=== PATIENT | female | born 1970 | race Caucasian/White ===

== ENCOUNTER 2019-01-08 12:54 | Inpatient (IN) | payer OTHER ==
[~2019-01-08] VITALS: Ht 154.9 cm; Wt 93.2 kg
[~2019-01-08 12:54] MED LIST: AMPDEX30CR PO; Dazidox10 MG PO; METCAR500 PO; TRAZ50 PO; VENL25 PO
[2019-01-08 13:30] LABS: BASOPHILS ABSOLUTE AUTO 0.08 K/mm3 (0.00-0.23); BASOPHILS PERCENT AUTO 1 % (0-2); EOSINOPHILS ABSOLUTE AUTO 0.32 K/mm3 (0.00-0.68); EOSINOPHILS PERCENT AUTO 4 % (0-6); Hematocrit 47.7 % (33.0-51.0); Hemoglobin 15.5 g/dL (11.5-16.0); IMMATURE GRAN ABSOLUTE AUTO 0.03 K/mm3 (0.00-0.10); IMMATURE GRAN PERCENT AUTO 0 % (0-1); LYMPHOCYTES ABSOLUTE AUTO 2.29 K/mm3 (0.84-5.20); LYMPHOCYTES PERCENT AUTO 27 % (21-46); MONOCYTES ABSOLUTE AUTO 0.61 K/mm3 (0.16-1.47); MONOCYTES PERCENT AUTO 7 % (4-13); Mean Corpuscular HGB 32.1 pg (26.0-34.0); Mean Corpuscular HGB Conc 32.5 g/dL (31.5-36.5); Mean Corpuscular Volume 99 fL (80-100); Mean Platelet Volume 9.7 fL (9.1-12.4); NEUTROPHILS ABSOLUTE AUTO 5.02 K/mm3 (1.96-9.15); NEUTROPHILS PERCENT AUTO 60 % (41-73); Platelet Count 347 K/mm3 (150-400); RDW Coefficient Variation 17.7 % (11.7-14.2); RDW Standard Deviation 65.8 fL (35.1-46.3); Red Blood Cell Count 4.83 M/mm3 (3.80-5.20); White Blood Cell Count 8.35 K/mm3 (4.00-11.30)
[2019-01-08 13:49] LABS: Alanine Aminotransfer (ALT/SGP 41 U/L (12-78); Albumin, Blood 3.5 g/dL (3.4-5.0); Albumin/Globulin Ratio 1.3 (0.8-1.8); Alk Phos 136 U/L (50-136); Anion Gap 7 mmol/L (6-16); Aspartate Aminotrans (AST/SGOT 27 U/L (12-37); Bilirubin, Total 0.3 mg/dL (0.1-1.0); Blood Urea Nitrogen 19 mg/dL (8-24); Bun/Creatinine Ratio 20.7 (12.0-20.0); CO2, Blood 24 mmol/L (21-32); Calcium, Blood 8.8 mg/dL (8.5-10.1); Chloride, Blood 106 mmol/L (98-108); Creatinine, Blood 0.92 mg/dL (0.40-1.00); Globulin, Blood 2.7 g/dL (2.2-4.0); Glomerular Filtration Rate >60 (60-); Glucose, Blood 83 mg/dL (70-99); Potassium, Blood 4.8 mmol/L (3.5-5.5); Sodium, Blood 137 mmol/L (136-145); Total Protein, Blood 6.2 g/dL (6.4-8.2)
[2019-01-08] MEDS ORDERED: Prinivil10 MG PO (14:21)
[2019-01-08] MEDS ORDERED: GABA300 PO (14:21)
[2019-01-08] MEDS ORDERED: Dyazide 37.5-21 EACH PO (14:22)
[2019-01-08] MEDS ORDERED: PANT40 PO (14:22)
[2019-01-08] MEDS ORDERED: CLON.1 PO (14:23)
[2019-01-08] MEDS ORDERED: VENL75ER PO (14:23)
[2019-01-08 14:25] LABS: PCO2 Arterial 36.8 mmHg (35-45); pH Blood Arterial 7.41 (7.35-7.45)
[2019-01-08 15:46] LABS: Ethanol (Alcohol), Blood, Med <3 mg/dL
[2019-01-08] MEDS ORDERED: ALBU90OI61 INH (17:55)
[2019-01-08] MEDS ORDERED: QVAR REDIHALE10.6 GM INH (17:55)
[2019-01-08] MEDS ORDERED: QVAR REDIHALE10.6 GM (22:14)
[2019-01-09 00:03] LABS: U Amphetamine Screen Not Detected; U Barbituate Screen Not Detected; U Benzodiazapine Screen DETECTED; U Cocaine Screen Not Detected; U Methamphetamine Screen DETECTED
[2019-01-09 00:04] LABS: U Buprenorphine Screen Not Detected; U Cannabinoids Screen Not Detected; U Methadone Screen Not Detected; U Opiates Screen Not Detected; U Oxycodone Screen Not Detected; U Phencyclidine Screen Not Detected; U Propoxyphene Screen Not Detected
[2019-01-09 02:29] LABS: Hemoglobin 15.4 g/dL (11.5-16.0); Mean Corpuscular HGB 31.8 pg (26.0-34.0); Mean Corpuscular HGB Conc 32.1 g/dL (31.5-36.5); Mean Corpuscular Volume 99 fL (80-100); Mean Platelet Volume 9.5 fL (9.1-12.4); Platelet Count 312 K/mm3 (150-400); RDW Coefficient Variation 17.8 % (11.7-14.2); RDW Standard Deviation 65.6 fL (35.1-46.3); Red Blood Cell Count 4.85 M/mm3 (3.80-5.20); White Blood Cell Count 8.36 K/mm3 (4.00-11.30)
[2019-01-09 02:47] LABS: Alanine Aminotransfer (ALT/SGP 33 U/L (12-78); Alk Phos 127 U/L (50-136); Anion Gap 6 mmol/L (6-16); Aspartate Aminotrans (AST/SGOT 23 U/L (12-37); Bilirubin, Total 0.3 mg/dL (0.1-1.0); Blood Urea Nitrogen 19 mg/dL (8-24); CO2, Blood 25 mmol/L (21-32); Calcium, Blood 8.6 mg/dL (8.5-10.1); Chloride, Blood 107 mmol/L (98-108); Globulin, Blood 2.9 g/dL (2.2-4.0); Glomerular Filtration Rate >60 (60-); Glucose, Blood 96 mg/dL (70-99); Potassium, Blood 4.6 mmol/L (3.5-5.5); Sodium, Blood 138 mmol/L (136-145); Total Protein, Blood 5.9 g/dL (6.4-8.2)
--- NOTE | 2019-01-09 07:31 | NUR ---
ADMIT NOTE/SHIFT SUMMARY: PATIENT ADMITTED FROM THE ER EARLIER LAST NIGHT. PATIENT TRANSFERED FROM THE [facility] TO THE BED VIA SLIDER SHEET. PATIENT REPORTS THAT SHE HAS BEEN FEELING DIZZY FOR MONTHS NOW AND HAS BEEN PASSING OUT OCCATIONALLY WELL. PATIENT REPORTS FREQUENT FALLS DUE TO THE DIZZINESS. PATIENT WAS UP TO THE [facility] AND STATED THAT SHE DID FEEL WEAK. PATIENT UNSTEADY AND SHAKEY ON HER FEET. PATIENT DROWSY UPON ADMIT BUT DID AWAKEN EASILY WITH VERBAL STIMULI. PATIENT NOW MUCH MORE ALERT AND STATES THAT SHE NO LONGER FEELS DROWSY. SHE STATED, "I DON'T REMEMBER MUCH OF LAST NIGHT AT ALL." PATIENT CURRENTLY SITTING UP IN BED AND WATCHING TV. VITAL SIGNS CHARTED. REPORT GIVEN TO ONCOMING RN.
--- NOTE | 2019-01-09 11:13 | NUR ---
re assessment no changes from this am shift assessment. patient tells me she has been sleeping since ativan given and has no tremors or anxiety
--- NOTE | 2019-01-09 15:18 | NUR ---
1400 patient tearful after visit from dr narvaez. 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 discussed with patient NPO status for ultrasound later today
--- NOTE | 2019-01-09 15:20 | NUR ---
VITAL SIGNS PATIENT DECLINES HAVING VITAL SIGNS DONE AT THIS TIME. ASKS WHY DID YOU F...N WAKE ME UP. PATIENT DENIES NEED FOR ATIVAN AT THIS TIME. CONTACTED [facility] PER PATIENT REQUEST TO UPDATE THEM ON PATIENT STATUS
--- NOTE | 2019-01-09 17:54 | NUR ---
PATIENT MED X1 WITH ATIVAN FOR ANXIETY AND HAS SLEPT MUCH OF SHIFT. PATIENT VERY TEARFUL AFTER SEEN BY DR PANCHAL WHO DISCUSSED HER HEART FAILURE DIAGNOSIS. PATIENT TELLS ME SHE IS HOMELESS AND HAS LITTLE CONTACT WITH HER FAMILY. PATIENT DID CONTACT HER MOTHER, WHO LIVES IN [place], AFTER SHE WAS SEEN BY DR PANCHAL. PATIENT NPO FOR ABD ULTRASOUND. PATIENT OUT IN HALLWAY AND STATES SHE DOES NOT WANT THE TEST AND SHE WANTS DINNER NOW. DISCUSSED ULTRASOUND WITH PATIENT WHO AT THIS TIME AGREES TO CONTINUE NPO. PATIENT AWARE OF PLAN FOR TRANSFER TO [facility] FOR FURTHER TREATMENT
--- NOTE | 2019-01-09 19:30 | NUR ---
PATIENT REFUSES TO WAIT FOR ULTRASOUND TONIGHT. YELLING IN THE HALLWAY. STATING SHE WANTS TO EAT AND SHE DOES NOT CARE ABOUT THE TEST. SHE IS REFUSING TO WAIT ANY LONGER. ULTRASOUND NOT ABLE TO COME AT THIS TIME DO TO EMERGENT CASE IN ER. PATIENT GIVEN DINNER.
--- NOTE | 2019-01-10 00:45 | NUR ---
PATIENT EATING A SALAD AND ICE CREAM. SITTING COMFORTABLY IN ROOM. NO SIGNS OF ANXIETY OR TREMORS AT THIS TIME.
--- NOTE | 2019-01-10 05:55 | NUR ---
Patient has bouts of temper where she verbally lashes out at staff. Patient stated last night she didn't care if she was NPO in the morning as long as she got dinner. Patient ate again just after midnight and was asking for more at 4am. Explained that she needed to wait until around 8 or after for food and drink to be able to complete ultrasound. Patient reluctantly agreed.
--- NOTE | 2019-01-10 17:49 | NUR ---
SHIFT SUMMARY PT ALERT AND ORIENTED. VS STABLE. O2 SATS REMAIN ABOVE 90% ON RA. PT INDEPENDENT IN ROOM. HR NSR. PT DENIES ANY PAIN. PT SHOWERED THIS SHIFT. CIWA TREATED PER PARAMETERS. PLAN FOR PT TO TRANSFER TO [facility] ONCE THERE IS AN ACCEPTING PHYSICIAN. WILL CONTINUE TO MONITOR AND REPORT TO ONCOMING RN. CALL LIGHT IN REACH.
--- NOTE | 2019-01-11 05:45 | NUR ---
PATIENT STATES SHE HAS HAD DREAMS OF DRUGS AND DOING THEM. PATIENT STATES SHE HASN'T SLEPT BUT COULDN'T BELIEVE THE TIME WHEN I EXPLAINED IT WAS 4AM. PATIENT HAS BEEN SNORING WHEN CHECKED ON. PATIENT HAD TWO DOSES OF ATIVAN PER CIWA. PATIENT SHORT WITH STAFF WHEN WANTING FOOD, BUT NOT VERBALLY AGGRESSIVE TONIGHT.
[2019-01-11 08:13] LABS: Anion Gap 7 mmol/L (6-16); Blood Urea Nitrogen 18 mg/dL (8-24); Bun/Creatinine Ratio 22.4 (12.0-20.0); CO2, Blood 25 mmol/L (21-32); Calcium, Blood 8.7 mg/dL (8.5-10.1); Chloride, Blood 106 mmol/L (98-108); Glomerular Filtration Rate >60 (60-); Glucose, Blood 133 mg/dL (70-99); Sodium, Blood 138 mmol/L (136-145)
--- NOTE | 2019-01-11 18:43 | NUR ---
SHIFT SUMMARY PT ALERT AND ORIENTED. VS STABLE. O2 SATS REMAIN ABOVE 90% ON RA. PT COMPLAINED OF PAIN THAT WAS RELEIVED WITH MEDICATION ADMINISTRATION. PT TEARFUL THROUGHOUT SHIFT AND ANXIOUS. PER DR. PANCHAL UNABLE TO GET AN EXCEPTING DOCTOR FOR TRANSFER TO [facility]. DR. PANCHAL STATES HE WILL BE IN THIS EVENING TO INFORM PT. REPORT GIVEN TO PEDIATRIC ORTHODONTIST RN.
--- NOTE | 2019-01-11 21:20 | NUR ---
PATIENT WALKED AROUND UNIT. SHE GOT SHORT OF BREATH WITH AMBULATION AND BECAME LOST. HELPED BACK TO ROOM. PATIENT HAVING TO STOP EVERY 10 TO 15 STEPS TO CATCH HER BREATH.
--- NOTE | 2019-01-12 05:05 | NUR ---
PATIENT STATES THAT SHE IS FEELING VERY DEPRESSED. SHE IS STRUGGLING WITH HER DESIRES TO DRINK AND IS SAD THAT SHE HAS NO FAMILY OR FRIENDS AROUND HER HERE. PATIENT STATES SHE STILL WANTS TO QUIT. PATIENT STATES SHE IS HAPPY SHE IS HERE BECAUSE SHE SAYS SHE DIDN'T EAT FOR 5 DAYS BEFORE SHE CAME INTO THE HOSPITAL DO TO BEING ON THE STREETS AND HAVING NO MONEY. STATES IT IS NICE NOT TO BE SCARED. PATIENT HAS NOT BEEN SLEEPING MUCH TONIGHT.
--- NOTE | 2019-01-12 18:14 | NUR ---
SHIFT SUMMARY PT ALERT AND ORIENTED. VS STABLE. 02 SATS REMAIN ABOVE 90% ON RA. PT UNABLE TO BE TRANSFERRED TO [facility] BECAUSE THERE WAS NOT AN ACCEPTING PHYSICIAN. PT INDEPENDENT IN ROOM. PLAN FOR PT TO DISCHARGE TOMORROW AFTER SOCIAL SERVICE CONSULT. WILL CONTINUE TO MONITOR AND REPORT TO ONCOMING RN. CALL LIGHT IN REACH.
--- NOTE | 2019-01-13 07:53 | NUR ---
SUMMARY NO ACUTE CHANGES NOTED THROUGH THE NIGHT. PT SLEPT WITH NO PROBLEMS. PAIN MEDICATED X1 PER PT REQUEST. PT ENCOURAGED TO CALL FOR ASSISTANCE WHEN GETTING OOB TO INCREASE SAFETY PRECAUTIONS. PT STATES " I FELL WHEN I GOT OUT OF THE SHOWER YESTERDAY" PT WAS POINTING TO THE RIGHT SIDE OF HER FACE C/O PAIN. NO VISIBLE TREVINO OR BRUISING COULD BE SEEN. CALL LIGHT IS IN REACH. PT WAS REORIENTED ON HOW TO USE IT AND ENC TO CALL FOR HELP. REPORT WAS GIVEN TO DAY RN.
[2019-01-13] MEDS ORDERED: Lasix20 MG PO (16:38)
[2019-01-13] MEDS ORDERED: FOLI1 PO (17:05)
--- NOTE | 2019-01-13 18:42 | NUR ---
DISCHARGE HELD DISCHARGE WAS HELD TODAY. UNABLE TO ARRANGE FOR HOME CPAP PRIOR TO DISCHARGE; PLAN TO CONTINUE WITH DISCHARGE TOMORROW.
--- NOTE | 2019-01-13 18:43 | NUR ---
PT CONCERNS PT HAS EXPRESSED CONCERNS ABOUT DISCHARGING FROM THE HOSPITAL. [facility] DOES NOT HAVE ANY INPATIENT BED AVALIABLE AT THIS TIME. THE PT THOUGHT THAT SHE WOULD HAVE AN INPATIENT BED AFTER COMPLETING DETOX; [facility] REPORTS THEY HAVE NO ROOMS AVALIABLE AT THIS TIME. PT IS AWARE SHE NEEDS TO MAKE ARRANGEMENTS OTHER THAN [facility] IN PREPARATION FOR DISCHARGE TOMORROW. PT IS A STAND BY ASSIST IN HER ROOM. SHE IS ABLE TO PERFORM HER ADLS WITHOUT ASSISTANCE. WILL CONTINUE TO MONITOR.
--- NOTE | 2019-01-13 18:48 | NUR ---
SHIFT SUMMARY PT HAS HAD NO SYNCOPAL EPISODES TODAY. SHE HAS BEEN STABLE ON HER FEET, NO COMPLAINTS OF DIZZINESS FOR LIGHTHEADEDNESS. PLAN FOR DISCHARGE TOMORROW IF CPAP CAN BE ARRANGED FOR HOME USE. PT HAS BEEN EDUCATED THAT [facility] DOES NOT HAVE BEDS AVALIABLE AT THIS TIME; SHE WAS EDUCATED SHE NEEDS TO MAKE TRANSPORT ARRANGEMENTS BACK TO HER HOME IN [place]. PT HAS BEEN INDEPENDENT WITH A SBA IN HER ROOM T/O THE DAY. VSS. WILL MONITOR UNTIL REPORT TO ONCOMING RN.
--- NOTE | 2019-01-14 07:37 | NUR ---
SHIFT SUMMARY PATIENT PLEASENT THROUGHOUT THE NIGHT. PATIENT APPEARED TO SLEEP WELL LAST NIGHT WITH NO COMPLAINTS OF PAIN. PATIENT DID HAVE SOME ANXIETY BEFORE BED RELATED TO NOT HAVING A PLACE TO STAY AFTER BEING DISCHARGED IN THE MORNING. HOWEVER, THEN PATIENT EASILY WAS ABLE TO FALL ASLEEP. PATIENT USED HER CPAP ON AND OFF THROUGHOUT THE NIGHT. RN WOULD PLACE CPAP MASK ON AND PATIENT WOULD WEAR IT FOR A LITTLE WHILE BEFORE SHE WOULD REMOVE IT. HOWEVER, EACH TIME PATIENT WAS COMPLIENT WITH REPLACING HER MASK. REPORT GIVEN TO ONCOMING RN.
== END 2019-01-14 14:35 | DRG 315 ==
LOC: ER 12:54 → ERHOLD 18:17 → PCU 18:17
PROVIDERS: Emergency Medicine; Nurse Practitioner Acute Care; ADMIT Internal Medicine
DX: I27.20 Pulmonary hypertension, unspecified (principal); F10.239 Alcohol dependence with withdrawal, unspecified; R04.2 Hemoptysis; I07.1 Rheumatic tricuspid insufficiency; Z96.652 Presence of left artificial knee joint; G47.33 Obstructive sleep apnea (adult) (pediatric); I50.810 Right heart failure, unspecified; R09.02 Hypoxemia; I11.0 Hypertensive heart disease with heart failure
CPT/HCPCS: 36415; 36600; 71046; 71260; 76705; 80048; 80053; 82140; 82803; 83605; 83690; 83735; 83880; 84484; 85025; 85027; 87040; 93005; 93010; 93306; 94640; 94660; 94760; 94761; 94762; 96374-59; 97116; 97161; 99285-25; A9270; C9113; G0480; J1650; J1940; J2060; J2405; Q9967

== ENCOUNTER 2019-01-22 23:11 | Emergency (ER) | payer OTHER ==
[~2019-01-22] VITALS: Ht 154.9 cm; Wt 95.2 kg
[~2019-01-22 23:11] MED LIST changes: +ALBU90OI61 INH; +CLON.1 PO; +Dyazide 37.5-21 EACH PO; +FOLI1 PO; +GABA300 PO; +Lasix20 MG PO; +PANT40 PO; +Prinivil10 MG PO; +QVAR REDIHALE10.6 GM; +QVAR REDIHALE10.6 GM INH; +VENL75ER PO
[2019-01-22 23:44] LABS: BASOPHILS ABSOLUTE AUTO 0.12 K/mm3 (0.00-0.23); BASOPHILS PERCENT AUTO 1 % (0-2); EOSINOPHILS ABSOLUTE AUTO 0.48 K/mm3 (0.00-0.68); EOSINOPHILS PERCENT AUTO 5 % (0-6); Hematocrit 42.2 % (33.0-51.0); Hemoglobin 13.7 g/dL (11.5-16.0); IMMATURE GRAN ABSOLUTE AUTO 0.02 K/mm3 (0.00-0.10); IMMATURE GRAN PERCENT AUTO 0 % (0-1); LYMPHOCYTES ABSOLUTE AUTO 3.09 K/mm3 (0.84-5.20); LYMPHOCYTES PERCENT AUTO 34 % (21-46); MONOCYTES ABSOLUTE AUTO 0.74 K/mm3 (0.16-1.47); MONOCYTES PERCENT AUTO 8 % (4-13); Mean Corpuscular HGB 31.9 pg (26.0-34.0); Mean Corpuscular HGB Conc 32.5 g/dL (31.5-36.5); Mean Corpuscular Volume 98 fL (80-100); NEUTROPHILS ABSOLUTE AUTO 4.54 K/mm3 (1.96-9.15); NEUTROPHILS PERCENT AUTO 51 % (41-73); RDW Coefficient Variation 16.5 % (11.7-14.2); RDW Standard Deviation 60.4 fL (35.1-46.3); White Blood Cell Count 8.99 K/mm3 (4.00-11.30)
[2019-01-22 23:45] LABS: Platelet Count 323 K/mm3 (150-400)
[2019-01-23 00:02] LABS: Alanine Aminotransfer (ALT/SGP 29 U/L (12-78); Albumin, Blood 2.9 g/dL (3.4-5.0); Albumin/Globulin Ratio 0.9 (0.8-1.8); Alk Phos 93 U/L (50-136); Anion Gap 7 mmol/L (6-16); Aspartate Aminotrans (AST/SGOT 25 U/L (12-37); Bilirubin, Total 0.1 mg/dL (0.1-1.0); Blood Urea Nitrogen 22 mg/dL (8-24); Bun/Creatinine Ratio 30.9 (12.0-20.0); CO2, Blood 22 mmol/L (21-32); Calcium, Blood 7.9 mg/dL (8.5-10.1); Chloride, Blood 112 mmol/L (98-108); Creatinine, Blood 0.71 mg/dL (0.40-1.00); Globulin, Blood 3.1 g/dL (2.2-4.0); Glomerular Filtration Rate >60 (60-); Glucose, Blood 78 mg/dL (70-99); Potassium, Blood 4.5 mmol/L (3.5-5.5); Sodium, Blood 141 mmol/L (136-145); Troponin I <0.015 ng/mL (0.000-0.040)
== END 2019-01-23 04:58 | disposition home or self-care (01) ==
LOC: ER 23:11
PROVIDERS: Emergency Medicine
DX: R07.89 Other chest pain (principal); Z88.1 Allergy status to other antibiotic agents; Z79.899 Other long term (current) drug therapy
CPT/HCPCS: 36415; 71046; 80053; 83880; 84484; 85025; 93005; 93010; 99285-25

== ENCOUNTER 2019-02-01 19:14 | Emergency (ER) | payer OTHER ==
[~2019-02-01] VITALS: Ht 154.9 cm; Wt 96.6 kg
[2019-02-01 20:16] LABS: BASOPHILS ABSOLUTE AUTO 0.12 K/mm3 (0.00-0.23); BASOPHILS PERCENT AUTO 1 % (0-2); EOSINOPHILS ABSOLUTE AUTO 0.59 K/mm3 (0.00-0.68); EOSINOPHILS PERCENT AUTO 7 % (0-6); Hematocrit 46.1 % (33.0-51.0); Hemoglobin 14.8 g/dL (11.5-16.0); IMMATURE GRAN ABSOLUTE AUTO 0.03 K/mm3 (0.00-0.10); IMMATURE GRAN PERCENT AUTO 0 % (0-1); LYMPHOCYTES ABSOLUTE AUTO 3.02 K/mm3 (0.84-5.20); LYMPHOCYTES PERCENT AUTO 34 % (21-46); MONOCYTES ABSOLUTE AUTO 0.69 K/mm3 (0.16-1.47); MONOCYTES PERCENT AUTO 8 % (4-13); Mean Corpuscular HGB 30.8 pg (26.0-34.0); Mean Corpuscular HGB Conc 32.1 g/dL (31.5-36.5); Mean Corpuscular Volume 96 fL (80-100); Mean Platelet Volume 9.2 fL (9.1-12.4); NEUTROPHILS ABSOLUTE AUTO 4.34 K/mm3 (1.96-9.15); NEUTROPHILS PERCENT AUTO 49 % (41-73); Platelet Count 336 K/mm3 (150-400); RDW Coefficient Variation 15.8 % (11.7-14.2); RDW Standard Deviation 56.7 fL (35.1-46.3); White Blood Cell Count 8.79 K/mm3 (4.00-11.30)
[2019-02-01 20:39] LABS: Alanine Aminotransfer (ALT/SGP 34 U/L (12-78); Albumin, Blood 3.5 g/dL (3.4-5.0); Albumin/Globulin Ratio 1.1 (0.8-1.8); Alk Phos 96 U/L (50-136); Anion Gap 3 mmol/L (6-16); Aspartate Aminotrans (AST/SGOT 24 U/L (12-37); Bilirubin, Total 0.3 mg/dL (0.1-1.0); Blood Urea Nitrogen 19 mg/dL (8-24); Bun/Creatinine Ratio 25.2 (12.0-20.0); CO2, Blood 29 mmol/L (21-32); Calcium, Blood 8.9 mg/dL (8.5-10.1); Chloride, Blood 105 mmol/L (98-108); Creatinine, Blood 0.75 mg/dL (0.40-1.00); Globulin, Blood 3.2 g/dL (2.2-4.0); Glomerular Filtration Rate >60 (60-); Glucose, Blood 81 mg/dL (70-99); Potassium, Blood 4.9 mmol/L (3.5-5.5); Sodium, Blood 137 mmol/L (136-145); Total Protein, Blood 6.7 g/dL (6.4-8.2); Troponin I <0.015 ng/mL (0.000-0.040)
== END 2019-02-01 22:44 | disposition home or self-care (01) ==
LOC: ER 19:14
PROVIDERS: Emergency Medicine
DX: R07.9 Chest pain, unspecified (principal); F10.239 Alcohol dependence with withdrawal, unspecified; I50.9 Heart failure, unspecified; I27.20 Pulmonary hypertension, unspecified; Z88.1 Allergy status to other antibiotic agents; Z79.899 Other long term (current) drug therapy
CPT/HCPCS: 36415; 71045; 80053; 83880; 84484; 85025; 93005; 93010; 99285-25

== ENCOUNTER 2019-02-23 09:06 | Emergency (ER) | payer OTHER ==
[~2019-02-23] VITALS: Ht 154.9 cm; Wt 90.7 kg
[2019-02-23] MEDS ORDERED: Naltrexone HCl50 MG PO (09:37)
[2019-02-23 10:01] LABS: BASOPHILS PERCENT AUTO 2 % (0-2); EOSINOPHILS ABSOLUTE AUTO 0.49 K/mm3 (0.00-0.68); EOSINOPHILS PERCENT AUTO 8 % (0-6); Hemoglobin 14.8 g/dL (11.5-16.0); IMMATURE GRAN ABSOLUTE AUTO 0.02 K/mm3 (0.00-0.10); IMMATURE GRAN PERCENT AUTO 0 % (0-1); LYMPHOCYTES ABSOLUTE AUTO 1.47 K/mm3 (0.84-5.20); LYMPHOCYTES PERCENT AUTO 24 % (21-46); MONOCYTES PERCENT AUTO 7 % (4-13); Mean Corpuscular HGB 30.8 pg (26.0-34.0); Mean Corpuscular HGB Conc 32.9 g/dL (31.5-36.5); Mean Corpuscular Volume 94 fL (80-100); Mean Platelet Volume 9.3 fL (9.1-12.4); NEUTROPHILS ABSOLUTE AUTO 3.72 K/mm3 (1.96-9.15); NEUTROPHILS PERCENT AUTO 60 % (41-73); Platelet Count 314 K/mm3 (150-400); RDW Standard Deviation 52.7 fL (35.1-46.3)
[2019-02-23 10:10] LABS: Troponin I <0.015 ng/mL (0.000-0.040)
[2019-02-23 10:11] LABS: Alanine Aminotransfer (ALT/SGP 39 U/L (12-78); Albumin, Blood 3.6 g/dL (3.4-5.0); Alk Phos 113 U/L (50-136); Anion Gap 7 mmol/L (6-16); Aspartate Aminotrans (AST/SGOT 38 U/L (12-37); Bilirubin, Total 0.5 mg/dL (0.1-1.0); Blood Urea Nitrogen 20 mg/dL (8-24); CO2, Blood 24 mmol/L (21-32); Calcium, Blood 8.9 mg/dL (8.5-10.1); Chloride, Blood 108 mmol/L (98-108); Creatinine, Blood 0.65 mg/dL (0.40-1.00); Globulin, Blood 3.7 g/dL (2.2-4.0); Glomerular Filtration Rate >60 (60-); Glucose, Blood 96 mg/dL (70-99); Potassium, Blood 4.8 mmol/L (3.5-5.5); Sodium, Blood 139 mmol/L (136-145); Total Protein, Blood 7.3 g/dL (6.4-8.2)
[2019-02-23] MEDS ORDERED: KETO10 PO (11:01)
== END 2019-02-23 12:25 | disposition home or self-care (01) ==
LOC: ER 09:06
PROVIDERS: Physician Assistant
DX: I27.21 Secondary pulmonary arterial hypertension (principal); M16.12 Unilateral primary osteoarthritis, left hip; Z88.1 Allergy status to other antibiotic agents; Z79.899 Other long term (current) drug therapy
CPT/HCPCS: 36415; 71046; 73030; 73502; 80053; 83880; 84484; 85025; 93005; 93010; 96374; 96375; 99284-25; J1885; J1940

== ENCOUNTER 2019-02-25 21:35 | Emergency (ER) | payer OTHER ==
[~2019-02-25] VITALS: Ht 154.9 cm; Wt 90.7 kg
[~2019-02-25 21:35] MED LIST changes: +KETO10 PO; +Naltrexone HCl50 MG PO
[2019-02-25 22:33] LABS: BASOPHILS ABSOLUTE AUTO 0.09 K/mm3 (0.00-0.23); BASOPHILS PERCENT AUTO 1 % (0-2); EOSINOPHILS ABSOLUTE AUTO 0.64 K/mm3 (0.00-0.68); EOSINOPHILS PERCENT AUTO 6 % (0-6); Hematocrit 45.5 % (33.0-51.0); IMMATURE GRAN ABSOLUTE AUTO 0.03 K/mm3 (0.00-0.10); IMMATURE GRAN PERCENT AUTO 0 % (0-1); LYMPHOCYTES ABSOLUTE AUTO 2.56 K/mm3 (0.84-5.20); LYMPHOCYTES PERCENT AUTO 22 % (21-46); MONOCYTES ABSOLUTE AUTO 0.72 K/mm3 (0.16-1.47); MONOCYTES PERCENT AUTO 6 % (4-13); Mean Corpuscular HGB 30.9 pg (26.0-34.0); Mean Corpuscular Volume 94 fL (80-100); Mean Platelet Volume 9.4 fL (9.1-12.4); NEUTROPHILS ABSOLUTE AUTO 7.51 K/mm3 (1.96-9.15); NEUTROPHILS PERCENT AUTO 65 % (41-73); Platelet Count 296 K/mm3 (150-400); RDW Coefficient Variation 14.7 % (11.7-14.2); RDW Standard Deviation 51.7 fL (35.1-46.3); Red Blood Cell Count 4.85 M/mm3 (3.80-5.20); White Blood Cell Count 11.55 K/mm3 (4.00-11.30)
[2019-02-25 22:53] LABS: Alanine Aminotransfer (ALT/SGP 35 U/L (12-78); Albumin, Blood 3.4 g/dL (3.4-5.0); Albumin/Globulin Ratio 0.9 (0.8-1.8); Alk Phos 110 U/L (50-136); Anion Gap 7 mmol/L (6-16); Aspartate Aminotrans (AST/SGOT 18 U/L (12-37); Bilirubin, Total 0.2 mg/dL (0.1-1.0); Blood Urea Nitrogen 19 mg/dL (8-24); Bun/Creatinine Ratio 25.6 (12.0-20.0); CO2, Blood 25 mmol/L (21-32); Chloride, Blood 110 mmol/L (98-108); Creatinine, Blood 0.74 mg/dL (0.40-1.00); Globulin, Blood 3.6 g/dL (2.2-4.0); Glomerular Filtration Rate >60 (60-); Glucose, Blood 94 mg/dL (70-99); Potassium, Blood 4.6 mmol/L (3.5-5.5); Sodium, Blood 142 mmol/L (136-145); Troponin I <0.015 ng/mL (0.000-0.040)
[2019-02-26] MEDS ORDERED: TRAZ50 PO (01:13)
== END 2019-02-26 01:54 | disposition home or self-care (01) ==
LOC: ER 21:35
PROVIDERS: Emergency Medicine
DX: J40 Bronchitis, not specified as acute or chronic (principal); R04.2 Hemoptysis; I11.0 Hypertensive heart disease with heart failure; I50.9 Heart failure, unspecified; Z88.1 Allergy status to other antibiotic agents; Z79.899 Other long term (current) drug therapy
CPT/HCPCS: 36415; 71046; 80053; 83880; 84484; 85025; 93005; 93010; 99285-25

== ENCOUNTER 2019-03-03 16:16 | Emergency (ER) | payer OTHER ==
[~2019-03-03] VITALS: Ht 154.9 cm; Wt 90.7 kg
[2019-03-03 17:43] LABS: BASOPHILS ABSOLUTE AUTO 0.08 K/mm3 (0.00-0.23); BASOPHILS PERCENT AUTO 1 % (0-2); EOSINOPHILS ABSOLUTE AUTO 0.52 K/mm3 (0.00-0.68); EOSINOPHILS PERCENT AUTO 6 % (0-6); Hematocrit 44.7 % (33.0-51.0); Hemoglobin 14.5 g/dL (11.5-16.0); IMMATURE GRAN ABSOLUTE AUTO 0.03 K/mm3 (0.00-0.10); IMMATURE GRAN PERCENT AUTO 0 % (0-1); LYMPHOCYTES ABSOLUTE AUTO 2.78 K/mm3 (0.84-5.20); LYMPHOCYTES PERCENT AUTO 32 % (21-46); MONOCYTES ABSOLUTE AUTO 0.67 K/mm3 (0.16-1.47); MONOCYTES PERCENT AUTO 8 % (4-13); Mean Corpuscular HGB Conc 32.4 g/dL (31.5-36.5); Mean Corpuscular Volume 96 fL (80-100); Mean Platelet Volume 9.2 fL (9.1-12.4); NEUTROPHILS ABSOLUTE AUTO 4.65 K/mm3 (1.96-9.15); NEUTROPHILS PERCENT AUTO 53 % (41-73); Platelet Count 296 K/mm3 (150-400); RDW Coefficient Variation 14.7 % (11.7-14.2); RDW Standard Deviation 51.1 fL (35.1-46.3); Red Blood Cell Count 4.67 M/mm3 (3.80-5.20); White Blood Cell Count 8.73 K/mm3 (4.00-11.30)
[2019-03-03 18:04] LABS: Alanine Aminotransfer (ALT/SGP 95 U/L (12-78); Albumin, Blood 3.3 g/dL (3.4-5.0); Alk Phos 113 U/L (50-136); Anion Gap 5 mmol/L (6-16); Aspartate Aminotrans (AST/SGOT 64 U/L (12-37); Bilirubin, Total 0.4 mg/dL (0.1-1.0); Blood Urea Nitrogen 17 mg/dL (8-24); CO2, Blood 25 mmol/L (21-32); Calcium, Blood 8.4 mg/dL (8.5-10.1); Chloride, Blood 111 mmol/L (98-108); Creatinine, Blood 0.66 mg/dL (0.40-1.00); Globulin, Blood 3.2 g/dL (2.2-4.0); Glomerular Filtration Rate >60 (60-); Glucose, Blood 82 mg/dL (70-99); Potassium, Blood 4.6 mmol/L (3.5-5.5); Sodium, Blood 141 mmol/L (136-145); Total Protein, Blood 6.5 g/dL (6.4-8.2)
[2019-03-03] MEDS ORDERED: KETO10 PO (20:17)
== END 2019-03-03 20:34 | disposition home or self-care (01) ==
LOC: ER 16:16
PROVIDERS: Physician Assistant
DX: K81.9 Cholecystitis, unspecified (principal); I11.0 Hypertensive heart disease with heart failure; I50.810 Right heart failure, unspecified; Z88.1 Allergy status to other antibiotic agents; Z79.899 Other long term (current) drug therapy; Z79.891 Long term (current) use of opiate analgesic
CPT/HCPCS: 36415; 76705; 80053; 83690; 83880; 84484; 85025; 93005; 93010; 96374; 99284-25; J1885

== ENCOUNTER 2019-04-05 18:35 | Emergency (ER) | payer OTHER ==
[~2019-04-05] VITALS: Ht 154.9 cm; Wt 95.2 kg
[2019-04-05 19:30] LABS: BASOPHILS ABSOLUTE AUTO 0.09 K/mm3 (0.00-0.23); BASOPHILS PERCENT AUTO 1 % (0-2); EOSINOPHILS ABSOLUTE AUTO 0.65 K/mm3 (0.00-0.68); EOSINOPHILS PERCENT AUTO 6 % (0-6); Hematocrit 44.4 % (33.0-51.0); Hemoglobin 14.2 g/dL (11.5-16.0); IMMATURE GRAN ABSOLUTE AUTO 0.05 K/mm3 (0.00-0.10); IMMATURE GRAN PERCENT AUTO 1 % (0-1); LYMPHOCYTES ABSOLUTE AUTO 2.41 K/mm3 (0.84-5.20); LYMPHOCYTES PERCENT AUTO 22 % (21-46); MONOCYTES ABSOLUTE AUTO 0.73 K/mm3 (0.16-1.47); MONOCYTES PERCENT AUTO 7 % (4-13); Mean Corpuscular HGB 30.5 pg (26.0-34.0); Mean Corpuscular Volume 95 fL (80-100); Mean Platelet Volume 9.7 fL (9.1-12.4); NEUTROPHILS ABSOLUTE AUTO 6.85 K/mm3 (1.96-9.15); NEUTROPHILS PERCENT AUTO 64 % (41-73); Platelet Count 356 K/mm3 (150-400); RDW Coefficient Variation 13.9 % (11.7-14.2); RDW Standard Deviation 48.8 fL (35.1-46.3); Red Blood Cell Count 4.66 M/mm3 (3.80-5.20); White Blood Cell Count 10.78 K/mm3 (4.00-11.30)
[2019-04-05 19:42] LABS: Alanine Aminotransfer (ALT/SGP 40 U/L (12-78); Albumin, Blood 3.5 g/dL (3.4-5.0); Alk Phos 169 U/L (50-136); Anion Gap 6 mmol/L (6-16); Aspartate Aminotrans (AST/SGOT 30 U/L (12-37); Bilirubin, Total 0.2 mg/dL (0.1-1.0); Blood Urea Nitrogen 23 mg/dL (8-24); Bun/Creatinine Ratio 23.9 (12.0-20.0); CO2, Blood 24 mmol/L (21-32); Calcium, Blood 8.7 mg/dL (8.5-10.1); Chloride, Blood 108 mmol/L (98-108); Creatinine, Blood 0.96 mg/dL (0.40-1.00); Globulin, Blood 3.5 g/dL (2.2-4.0); Glomerular Filtration Rate >60 (60-); Glucose, Blood 77 mg/dL (70-99); Potassium, Blood 4.7 mmol/L (3.5-5.5); Sodium, Blood 138 mmol/L (136-145); Troponin I 0.027 ng/mL (0.000-0.040)
[2019-04-05] MEDS ORDERED: ALBU90OI INH (21:02)
[2019-04-05] MEDS ORDERED: Prednisone50 MG PO (21:02)
[2019-04-05] MEDS ORDERED: ALBU3IS INH (21:02)
== END 2019-04-05 21:46 | disposition home or self-care (01) ==
LOC: ER 18:35
PROVIDERS: Physician Assistant
DX: J98.01 Acute bronchospasm (principal); R06.00 Dyspnea, unspecified; Z88.1 Allergy status to other antibiotic agents; Z79.899 Other long term (current) drug therapy
CPT/HCPCS: 36415; 71046; 80053; 81025; 84484; 85025; 93005; 93010; 94640; 99284-25

== ENCOUNTER 2019-04-16 13:05 | Emergency (ER) | payer OTHER ==
[~2019-04-16] VITALS: Ht 154.9 cm; Wt 90.7 kg
[~2019-04-16 13:05] MED LIST changes: +ALBU3IS INH; +ALBU90OI INH; +Prednisone50 MG PO
[2019-04-16 13:47] LABS: BASOPHILS ABSOLUTE AUTO 0.02 K/mm3 (0.00-0.23); BASOPHILS PERCENT AUTO 0 % (0-2); EOSINOPHILS ABSOLUTE AUTO 0.02 K/mm3 (0.00-0.68); EOSINOPHILS PERCENT AUTO 0 % (0-6); Hematocrit 44.9 % (33.0-51.0); Hemoglobin 14.5 g/dL (11.5-16.0); IMMATURE GRAN ABSOLUTE AUTO 0.06 K/mm3 (0.00-0.10); IMMATURE GRAN PERCENT AUTO 1 % (0-1); LYMPHOCYTES ABSOLUTE AUTO 0.86 K/mm3 (0.84-5.20); LYMPHOCYTES PERCENT AUTO 9 % (21-46); MONOCYTES ABSOLUTE AUTO 0.15 K/mm3 (0.16-1.47); MONOCYTES PERCENT AUTO 2 % (4-13); Mean Corpuscular HGB Conc 32.3 g/dL (31.5-36.5); Mean Corpuscular Volume 93 fL (80-100); Mean Platelet Volume 9.5 fL (9.1-12.4); NEUTROPHILS ABSOLUTE AUTO 8.85 K/mm3 (1.96-9.15); NEUTROPHILS PERCENT AUTO 89 % (41-73); Platelet Count 308 K/mm3 (150-400); RDW Standard Deviation 47.8 fL (35.1-46.3); Red Blood Cell Count 4.83 M/mm3 (3.80-5.20); White Blood Cell Count 9.96 K/mm3 (4.00-11.30)
[2019-04-16 14:08] LABS: International Normalized Ratio 1.04
[2019-04-16 14:12] LABS: Alanine Aminotransfer (ALT/SGP 60 U/L (12-78); Albumin, Blood 3.6 g/dL (3.4-5.0); Albumin/Globulin Ratio 1.1 (0.8-1.8); Alk Phos 114 U/L (50-136); Anion Gap 7 mmol/L (6-16); Aspartate Aminotrans (AST/SGOT 29 U/L (12-37); Bilirubin, Total 0.3 mg/dL (0.1-1.0); Blood Urea Nitrogen 20 mg/dL (8-24); Bun/Creatinine Ratio 25.8 (12.0-20.0); CO2, Blood 23 mmol/L (21-32); Calcium, Blood 8.6 mg/dL (8.5-10.1); Chloride, Blood 109 mmol/L (98-108); Creatinine, Blood 0.77 mg/dL (0.40-1.00); Globulin, Blood 3.4 g/dL (2.2-4.0); Glomerular Filtration Rate >60 (60-); Glucose, Blood 143 mg/dL (70-99); Potassium, Blood 4.7 mmol/L (3.5-5.5); Sodium, Blood 139 mmol/L (136-145)
[2019-04-16 15:41] LABS: Source, Urine Clean Catch
[2019-04-16 15:56] LABS: Bilirubin, Urine Neg (Neg); Blood, Urine 5+ (Neg); Glucose Qualitative, Urine Neg (Neg); Ketones, Urine Neg (Neg); Leukocyte Esterase, Urine 3+ (Neg); Nitrite, Urine Neg (Neg); Protein, Urine 2+ (Neg); Specific Gravity, Urine 1.015 (1.003-1.022); Urobilinogen, Urine NORM (Normal)
[2019-04-16 16:31] LABS: Appearance, Urine Hazy (Clear); Color, Urine Yellow (P-Yellow)
[2019-04-16 16:43] LABS: Red Blood Cells, Urine 25-50 /hpf (0-2)
[2019-04-16 16:44] LABS: Bacteria Many /hpf; Squamous Epithelial Cells Many /hpf (Few)
[2019-04-16] MEDS ORDERED: Macrobid 100 M100 MG PO (17:21)
== END 2019-04-16 17:41 | disposition home or self-care (01) ==
LOC: ER 13:05
PROVIDERS: Emergency Medicine; Physician Assistant
DX: R47.1 Dysarthria and anarthria (principal); I27.20 Pulmonary hypertension, unspecified; Z88.1 Allergy status to other antibiotic agents; Z79.899 Other long term (current) drug therapy; Z79.52 Long term (current) use of systemic steroids
CPT/HCPCS: 36415; 70450; 70496; 71046; 80053; 81001; 82947; 83880; 84484; 85025; 85610; 87077; 87086; 87186; 93005; 93010; 99285-25; Q9967

== ENCOUNTER 2019-05-15 15:27 | Emergency (ER) | payer OTHER ==
[~2019-05-15] VITALS: Ht 154.9 cm; Wt 108.9 kg
[~2019-05-15 15:27] MED LIST changes: +Macrobid 100 M100 MG PO
[2019-05-15 17:08] LABS: BASOPHILS ABSOLUTE AUTO 0.07 K/mm3 (0.00-0.23); BASOPHILS PERCENT AUTO 1 % (0-2); EOSINOPHILS ABSOLUTE AUTO 0.42 K/mm3 (0.00-0.68); EOSINOPHILS PERCENT AUTO 5 % (0-6); Hematocrit 46.9 % (33.0-51.0); Hemoglobin 15.2 g/dL (11.5-16.0); IMMATURE GRAN ABSOLUTE AUTO 0.03 K/mm3 (0.00-0.10); IMMATURE GRAN PERCENT AUTO 0 % (0-1); LYMPHOCYTES ABSOLUTE AUTO 1.26 K/mm3 (0.84-5.20); LYMPHOCYTES PERCENT AUTO 16 % (21-46); MONOCYTES ABSOLUTE AUTO 0.61 K/mm3 (0.16-1.47); MONOCYTES PERCENT AUTO 8 % (4-13); Mean Corpuscular HGB 29.6 pg (26.0-34.0); Mean Corpuscular HGB Conc 32.4 g/dL (31.5-36.5); Mean Corpuscular Volume 91 fL (80-100); Mean Platelet Volume 9.8 fL (9.1-12.4); NEUTROPHILS ABSOLUTE AUTO 5.72 K/mm3 (1.96-9.15); NEUTROPHILS PERCENT AUTO 71 % (41-73); Platelet Count 238 K/mm3 (150-400); RDW Coefficient Variation 13.9 % (11.7-14.2); Red Blood Cell Count 5.13 M/mm3 (3.80-5.20); White Blood Cell Count 8.11 K/mm3 (4.00-11.30)
[2019-05-15 17:31] LABS: Alanine Aminotransfer (ALT/SGP 30 U/L (12-78); Albumin, Blood 3.6 g/dL (3.4-5.0); Alk Phos 121 U/L (50-136); Anion Gap 3 mmol/L (6-16); Aspartate Aminotrans (AST/SGOT 24 U/L (12-37); Bilirubin, Total 0.5 mg/dL (0.1-1.0); Blood Urea Nitrogen 24 mg/dL (8-24); Bun/Creatinine Ratio 25.8 (12.0-20.0); CO2, Blood 26 mmol/L (21-32); Calcium, Blood 8.9 mg/dL (8.5-10.1); Chloride, Blood 105 mmol/L (98-108); Creatinine, Blood 0.93 mg/dL (0.40-1.00); Globulin, Blood 3.7 g/dL (2.2-4.0); Glomerular Filtration Rate >60 (60-); Glucose, Blood 86 mg/dL (70-99); Potassium, Blood 4.3 mmol/L (3.5-5.5); Sodium, Blood 134 mmol/L (136-145); Total Protein, Blood 7.3 g/dL (6.4-8.2)
== END 2019-05-15 17:37 | disposition left against medical advice (07) ==
LOC: ER 15:27
PROVIDERS: Physician Assistant
DX: R06.02 Shortness of breath (principal)
CPT/HCPCS: 36415; 71046; 80053; 85025; 99283-25

== ENCOUNTER 2019-05-28 18:25 | Emergency (ER) | payer OTHER ==
[~2019-05-28] VITALS: Ht 154.9 cm; Wt 106.1 kg
[2019-05-28 19:43] LABS: BASOPHILS ABSOLUTE AUTO 0.11 K/mm3 (0.00-0.23); BASOPHILS PERCENT AUTO 1 % (0-2); EOSINOPHILS ABSOLUTE AUTO 0.79 K/mm3 (0.00-0.68); EOSINOPHILS PERCENT AUTO 8 % (0-6); Hematocrit 41.2 % (33.0-51.0); Hemoglobin 13.5 g/dL (11.5-16.0); IMMATURE GRAN ABSOLUTE AUTO 0.04 K/mm3 (0.00-0.10); IMMATURE GRAN PERCENT AUTO 0 % (0-1); LYMPHOCYTES PERCENT AUTO 21 % (21-46); MONOCYTES ABSOLUTE AUTO 0.71 K/mm3 (0.16-1.47); MONOCYTES PERCENT AUTO 7 % (4-13); Mean Corpuscular HGB 29.5 pg (26.0-34.0); Mean Corpuscular HGB Conc 32.8 g/dL (31.5-36.5); Mean Corpuscular Volume 90 fL (80-100); Mean Platelet Volume 9.5 fL (9.1-12.4); NEUTROPHILS ABSOLUTE AUTO 6.56 K/mm3 (1.96-9.15); NEUTROPHILS PERCENT AUTO 63 % (41-73); Platelet Count 223 K/mm3 (150-400); RDW Standard Deviation 46.5 fL (35.1-46.3); Red Blood Cell Count 4.57 M/mm3 (3.80-5.20); White Blood Cell Count 10.41 K/mm3 (4.00-11.30)
[2019-05-28 20:31] LABS: Alanine Aminotransfer (ALT/SGP 71 U/L (12-78); Albumin, Blood 3.5 g/dL (3.4-5.0); Albumin/Globulin Ratio 1.1 (0.8-1.8); Alk Phos 185 U/L (50-136); Anion Gap 5 mmol/L (6-16); Aspartate Aminotrans (AST/SGOT 39 U/L (12-37); Bilirubin, Total 0.4 mg/dL (0.1-1.0); Blood Urea Nitrogen 17 mg/dL (8-24); Bun/Creatinine Ratio 17.7 (12.0-20.0); CO2, Blood 26 mmol/L (21-32); Calcium, Blood 8.9 mg/dL (8.5-10.1); Chloride, Blood 108 mmol/L (98-108); Creatinine, Blood 0.96 mg/dL (0.40-1.00); Globulin, Blood 3.2 g/dL (2.2-4.0); Glomerular Filtration Rate >60 (60-); Glucose, Blood 66 mg/dL (70-99); Potassium, Blood 4.1 mmol/L (3.5-5.5); Sodium, Blood 139 mmol/L (136-145); Total Protein, Blood 6.7 g/dL (6.4-8.2); Troponin I <0.015 ng/mL (0.000-0.040)
== END 2019-05-28 21:29 | disposition home or self-care (01) ==
LOC: ER 18:25
PROVIDERS: Physician Assistant
DX: I27.20 Pulmonary hypertension, unspecified (principal); I50.9 Heart failure, unspecified; Z88.1 Allergy status to other antibiotic agents; Z79.899 Other long term (current) drug therapy; Z79.51 Long term (current) use of inhaled steroids
CPT/HCPCS: 36415; 71046; 80053; 83880; 84484; 85025; 93005; 93010; 94640; 99285-25

== ENCOUNTER 2019-07-26 16:34 | Emergency (ER) | payer OTHER ==
[~2019-07-26] VITALS: Ht 154.9 cm; Wt 116.1 kg
[2019-07-26] MEDS ORDERED: KETO10 PO (18:56)
== END 2019-07-26 19:10 | disposition home or self-care (01) ==
LOC: ER 16:34
DX: S82.832A Other fracture of upper and lower end of left fibula, initial encounter for closed fracture (principal); S83.92XA Sprain of unspecified site of left knee, initial encounter; I27.20 Pulmonary hypertension, unspecified; G62.9 Polyneuropathy, unspecified; G47.33 Obstructive sleep apnea (adult) (pediatric); Z88.1 Allergy status to other antibiotic agents; Z79.52 Long term (current) use of systemic steroids; Z79.899 Other long term (current) drug therapy; W01.0XXA Fall on same level from slipping, tripping and stumbling without subsequent striking against object, initial encounter
CPT/HCPCS: 29505; 73562-LT; 73610; 96372-59; 99283-25; J1885

== ENCOUNTER 2019-08-25 18:24 | Emergency (ER) | payer OTHER ==
[~2019-08-25] VITALS: Ht 154.9 cm; Wt 115.2 kg
[2019-08-25 19:52] LABS: BASOPHILS ABSOLUTE AUTO 0.07 K/mm3 (0.00-0.23); BASOPHILS PERCENT AUTO 1 % (0-2); EOSINOPHILS ABSOLUTE AUTO 0.48 K/mm3 (0.00-0.68); EOSINOPHILS PERCENT AUTO 4 % (0-6); Hematocrit 44.1 % (33.0-51.0); Hemoglobin 14.5 g/dL (11.5-16.0); IMMATURE GRAN ABSOLUTE AUTO 0.06 K/mm3 (0.00-0.10); IMMATURE GRAN PERCENT AUTO 1 % (0-1); LYMPHOCYTES ABSOLUTE AUTO 2.77 K/mm3 (0.84-5.20); LYMPHOCYTES PERCENT AUTO 24 % (21-46); MONOCYTES ABSOLUTE AUTO 0.68 K/mm3 (0.16-1.47); MONOCYTES PERCENT AUTO 6 % (4-13); Mean Corpuscular HGB 29.7 pg (26.0-34.0); Mean Corpuscular HGB Conc 32.9 g/dL (31.5-36.5); Mean Corpuscular Volume 90 fL (80-100); Mean Platelet Volume 8.9 fL (9.1-12.4); NEUTROPHILS PERCENT AUTO 65 % (41-73); Platelet Count 304 K/mm3 (150-400); RDW Coefficient Variation 15.6 % (11.7-14.2); Red Blood Cell Count 4.88 M/mm3 (3.80-5.20); White Blood Cell Count 11.46 K/mm3 (4.00-11.30)
[2019-08-25 20:15] LABS: Alanine Aminotransfer (ALT/SGP 30 U/L (12-78); Albumin, Blood 3.7 g/dL (3.4-5.0); Alk Phos 112 U/L (50-136); Anion Gap 5 mmol/L (6-16); Aspartate Aminotrans (AST/SGOT 21 U/L (12-37); Bilirubin, Total 0.3 mg/dL (0.1-1.0); Blood Urea Nitrogen 15 mg/dL (8-24); Bun/Creatinine Ratio 19.2 (12.0-20.0); CO2, Blood 26 mmol/L (21-32); Calcium, Blood 9.2 mg/dL (8.5-10.1); Chloride, Blood 105 mmol/L (98-108); Creatinine, Blood 0.78 mg/dL (0.40-1.00); Globulin, Blood 3.7 g/dL (2.2-4.0); Glomerular Filtration Rate >60 (60-); Glucose, Blood 88 mg/dL (70-99); Sodium, Blood 136 mmol/L (136-145); Total Protein, Blood 7.4 g/dL (6.4-8.2)
[2019-08-25] MEDS ORDERED: CEPH500 PO (21:22)
== END 2019-08-25 22:20 | disposition home or self-care (01) ==
LOC: ER 18:24
PROVIDERS: Physician Assistant
DX: L03.311 Cellulitis of abdominal wall (principal); I27.20 Pulmonary hypertension, unspecified; Z88.1 Allergy status to other antibiotic agents
CPT/HCPCS: 36415; 74177; 80053; 83605; 85025; 99283-25; J0696; Q9967

== ENCOUNTER → 2019-10-01 | Outpatient (CLI) | payer OTHER ==
[~2019-10-01] MED LIST changes: +CEPH500 PO
[2019-10-03 13:11] LABS: HPV 16 Negative (Negative); HPV 18 Negative (Negative); HPV OTHER HR TYPES Negative (Negative)
== END | disposition home or self-care (01) ==
LOC: LAB SHORT 12:06 → LAB 12:06
PROVIDERS: Obstetrics & Gynecology
DX: Z12.4 Encounter for screening for malignant neoplasm of cervix (principal)
CPT/HCPCS: 87624; G0123

== ENCOUNTER 2020-08-16 13:18 | Observation (INO) | payer OTHER ==
[~2020-08-16] VITALS: Ht 154.9 cm; Wt 97.7 kg
[~2020-08-16 13:18] MED LIST changes: +FURO20 PO; -Lasix20 MG PO
[2020-08-16 14:47] LABS: BASOPHILS PERCENT AUTO 1 % (0-2); EOSINOPHILS ABSOLUTE AUTO 0.74 K/mm3 (0.00-0.68); EOSINOPHILS PERCENT AUTO 7 % (0-6); Hematocrit 50.8 % (33.0-51.0); IMMATURE GRAN ABSOLUTE AUTO 0.04 K/mm3 (0.00-0.10); IMMATURE GRAN PERCENT AUTO 0 % (0-1); LYMPHOCYTES ABSOLUTE AUTO 2.78 K/mm3 (0.84-5.20); LYMPHOCYTES PERCENT AUTO 27 % (21-46); MONOCYTES ABSOLUTE AUTO 0.57 K/mm3 (0.16-1.47); MONOCYTES PERCENT AUTO 6 % (4-13); Mean Corpuscular HGB 31.7 pg (26.0-34.0); Mean Corpuscular HGB Conc 33.5 g/dL (31.5-36.5); Mean Corpuscular Volume 95 fL (80-100); Mean Platelet Volume 9.5 fL (9.1-12.4); NEUTROPHILS ABSOLUTE AUTO 5.96 K/mm3 (1.96-9.15); NEUTROPHILS PERCENT AUTO 58 % (41-73); Platelet Count 300 K/mm3 (150-400); RDW Coefficient Variation 15.5 % (11.7-14.2); RDW Standard Deviation 53.2 fL (35.1-46.3); Red Blood Cell Count 5.37 M/mm3 (3.80-5.20); White Blood Cell Count 10.19 K/mm3 (4.00-11.30)
[2020-08-16 15:53] LABS: Influenza A, PCR NEGATIVE (NEGATIVE); Influenza B, PCR NEGATIVE (NEGATIVE); Resp Syncytial Virus, PCR NEGATIVE (NEGATIVE); SARS-Cov-2 (COVID-19) PCR, MMC NEGATIVE (NEGATIVE)
[2020-08-16 16:11] LABS: Troponin I <0.015 ng/mL (0.000-0.040)
[2020-08-16 16:12] LABS: Alanine Aminotransfer (ALT/SGP 54 U/L (12-78); Albumin, Blood 3.6 g/dL (3.4-5.0); Alk Phos 145 U/L (50-136); Anion Gap 6 mmol/L (6-16); Aspartate Aminotrans (AST/SGOT 29 U/L (12-37); Bilirubin, Total 0.5 mg/dL (0.1-1.0); Blood Urea Nitrogen 16 mg/dL (8-24); Bun/Creatinine Ratio 18.6 (12.0-20.0); CO2, Blood 25 mmol/L (21-32); Chloride, Blood 110 mmol/L (98-108); Creatinine, Blood 0.86 mg/dL (0.40-1.00); Globulin, Blood 3.7 g/dL (2.2-4.0); Glomerular Filtration Rate >60 (60-); Glucose, Blood 87 mg/dL (70-99); Potassium, Blood 3.6 mmol/L (3.5-5.5); Sodium, Blood 141 mmol/L (136-145); Total Protein, Blood 7.3 g/dL (6.4-8.2)
[2020-08-16 17:18] LABS: Source, Urine Voided
[2020-08-16 17:26] LABS: Appearance, Urine Clear (Clear); Bilirubin, Urine Neg (Neg); Blood, Urine 1+ (Neg); Color, Urine Yellow (P-Yellow); Glucose Qualitative, Urine Neg (Neg); Ketones, Urine Neg (Neg); Leukocyte Esterase, Urine 1+ (Neg); Nitrite, Urine Neg (Neg); Protein, Urine 2+ (Neg); Specific Gravity, Urine 1.025 (1.003-1.022); Urobilinogen, Urine NORM (Normal)
[2020-08-16 17:41] LABS: U Amphetamine Screen DETECTED; U Barbituate Screen Not Detected; U Benzodiazapine Screen Not Detected; U Buprenorphine Screen Not Detected; U Cannabinoids Screen Not Detected; U Cocaine Screen Not Detected; U Methadone Screen Not Detected; U Methamphetamine Screen DETECTED; U Opiates Screen Not Detected; U Oxycodone Screen Not Detected; U Phencyclidine Screen Not Detected
[2020-08-16 17:42] LABS: U Propoxyphene Screen Not Detected
[2020-08-16 18:11] LABS: Bacteria Few /hpf; Squamous Epithelial Cells Few /hpf (Few)
[2020-08-16] MEDS ORDERED: PRAZ2 PO (18:14)
[2020-08-16] MEDS ORDERED: TRAZ150T57 PO (18:14)
[2020-08-16] MEDS ORDERED: SILDENAFIL CITR20 M1 PO (18:15)
[2020-08-16] MEDS ORDERED: VENLAFAXINE H37.5 M1 PO (18:15)
[2020-08-16] MEDS ORDERED: EFFEXOR XR150 MG PO (18:15)
[2020-08-16] MEDS ORDERED: BUDESONIDE-FO10.2 G2 INH (18:16)
[2020-08-17 04:31] LABS: BASOPHILS ABSOLUTE AUTO 0.11 K/mm3 (0.00-0.23); BASOPHILS PERCENT AUTO 1 % (0-2); EOSINOPHILS ABSOLUTE AUTO 0.82 K/mm3 (0.00-0.68); EOSINOPHILS PERCENT AUTO 7 % (0-6); Hematocrit 46.5 % (33.0-51.0); Hemoglobin 15.7 g/dL (11.5-16.0); IMMATURE GRAN ABSOLUTE AUTO 0.04 K/mm3 (0.00-0.10); IMMATURE GRAN PERCENT AUTO 0 % (0-1); LYMPHOCYTES ABSOLUTE AUTO 2.79 K/mm3 (0.84-5.20); LYMPHOCYTES PERCENT AUTO 25 % (21-46); MONOCYTES ABSOLUTE AUTO 0.85 K/mm3 (0.16-1.47); MONOCYTES PERCENT AUTO 8 % (4-13); Mean Corpuscular HGB 32.2 pg (26.0-34.0); Mean Corpuscular HGB Conc 33.8 g/dL (31.5-36.5); Mean Corpuscular Volume 96 fL (80-100); Mean Platelet Volume 9.7 fL (9.1-12.4); NEUTROPHILS ABSOLUTE AUTO 6.54 K/mm3 (1.96-9.15); NEUTROPHILS PERCENT AUTO 59 % (41-73); Platelet Count 254 K/mm3 (150-400); RDW Standard Deviation 52.4 fL (35.1-46.3); Red Blood Cell Count 4.87 M/mm3 (3.80-5.20); White Blood Cell Count 11.15 K/mm3 (4.00-11.30)
--- NOTE | 2020-08-17 04:34 | NUR ---
CONCRETE BUILDING ASSEMBLER SUMMARY A/OX3, SBA TO BSC. COMPLIANT WITH CPAP, CONT. BIOX IN PLACE WITH SATS GREATER THAN 92. DENIES PAIN AT THIS TIME. VSS, NO ACUTE CHANGES AT THIS TIME. BED IN LOWEST POSITION WITH CALL LIGHT IN REACH. WILL CONTINUE TO MONITOR AND REPORT TO ONCOMING RN.
[2020-08-17 04:59] LABS: Anion Gap 7 mmol/L (6-16); Blood Urea Nitrogen 20 mg/dL (8-24); Bun/Creatinine Ratio 21.9 (12.0-20.0); CO2, Blood 26 mmol/L (21-32); Calcium, Blood 8.6 mg/dL (8.5-10.1); Chloride, Blood 108 mmol/L (98-108); Creatinine, Blood 0.91 mg/dL (0.40-1.00); Glomerular Filtration Rate >60 (60-); Glucose, Blood 98 mg/dL (70-99); Potassium, Blood 3.7 mmol/L (3.5-5.5); Sodium, Blood 141 mmol/L (136-145)
--- NOTE | 2020-08-17 08:12 | NUR ---
Pt reports burning in her left upper chest, states that it has been there all night long. Does not seems to worsen with activity, but she does say that when she gets up she feels exhausted. Spoke with Dr. Marvin regarding the pt's complaints. New orders received.
--- NOTE | 2020-08-17 09:01 | NUR ---
PT states that chest pain resolved when she was up in chair, just before getting the EKG. States that she has had exhausted and short of breath every time that she tries to get up and move around.
[2020-08-17] MEDS ORDERED: AZIT500 PO (11:05)
[2020-08-17] MEDS ORDERED: MAALOX PLUS PO (11:10)
--- NOTE | 2020-08-17 11:45 | NUR ---
PT PROVIDED WITH WRITTEN AND VERBAL DISCHARGE TEACHING INCLUDING RECONCILLED MEDICATION LIST, NEW PRESCRIPTIONS, MEDICATION INFORMATION AND CHF TEACHING. IV TO L AC REMOVED, CATHETER INTACT, NO INFILTRATION NOTED. IV TO R HAND REMOVED, CATHTER INTACTED, NO INFILTRATION NOTED. PROGRAMMER ANALYST CONSULTANT REMOVED. ALL BELONGINGS SENT WITH PT. FLU VACCINE ADMINISTERED PER ORDERS. PT HAS CALLED HER FRIEND TO GIVE HER A RIDE HOME. PT HAS NO FURTHER DISCHARGE QUESTIONS OR NEEDS AT THIS TIME.
--- NOTE | 2020-08-17 11:52 | NUR ---
Spiritual care visit conducted. Patient is sitting on EOB and alert. Patient tells me about her boy friend who commited suicide in the [place] a few months ago, about her terminal heart condition, about her addiction to drugs and alcohol and her constant struggle to stay close to God. I listen empathically, reinforce helpful attitudes and practices and provide grief support, recitation of scripture, pastoral associate counsel and prayer. Patient responds well and is very tearful as she voices appreciation for the visit and the encouragement that she received from it. I will continue to remain available to patient and family.
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
== END 2020-08-17 12:27 | disposition home or self-care (01) ==
LOC: ER 13:18 → ERHOLD 13:19 → PCU 19:43
PROVIDERS: Emergency Medicine; Nurse Practitioner Acute Care; Physician Assistant; ADMIT Internal Medicine
DX: I11.0 Hypertensive heart disease with heart failure (principal); I50.813 Acute on chronic right heart failure; I27.20 Pulmonary hypertension, unspecified; J44.9 Chronic obstructive pulmonary disease, unspecified; G47.33 Obstructive sleep apnea (adult) (pediatric); F10.20 Alcohol dependence, uncomplicated; F15.90 Other stimulant use, unspecified, uncomplicated; K21.9 Gastro-esophageal reflux disease without esophagitis; I07.1 Rheumatic tricuspid insufficiency; Z88.1 Allergy status to other antibiotic agents; Z20.822 Contact with and (suspected) exposure to COVID-19
CPT/HCPCS: 0241U; 36415; 71260; 80048; 80053; 81001; 83880; 84484; 85025; 85379; 87086; 93005; 93010; 94640; 94660; 94762; 96372; 96374; 99285-25; A9270; G0008; G0378; G0480; J1650; J1940; Q2038; Q9967

== ENCOUNTER 2021-03-12 07:50 | Emergency (ER) | payer OTHER ==
[~2021-03-12] VITALS: Ht 154.9 cm; Wt 101.6 kg
[~2021-03-12 07:50] MED LIST changes: +AZIT500 PO; +BUDESONIDE-FO10.2 G2 INH; +EFFEXOR XR150 MG PO; +MAALOX PLUS PO; +PRAZ2 PO; +SILDENAFIL CITR20 M1 PO; +TRAZ150T57 PO; +VENLAFAXINE H37.5 M1 PO
[2021-03-12 08:16] LABS: BASOPHILS ABSOLUTE AUTO 0.07 K/mm3 (0.00-0.23); BASOPHILS PERCENT AUTO 1 % (0-2); EOSINOPHILS ABSOLUTE AUTO 1.07 K/mm3 (0.00-0.68); EOSINOPHILS PERCENT AUTO 9 % (0-6); Hematocrit 42.2 % (33.0-51.0); IMMATURE GRAN ABSOLUTE AUTO 0.03 K/mm3 (0.00-0.10); IMMATURE GRAN PERCENT AUTO 0 % (0-1); LYMPHOCYTES PERCENT AUTO 11 % (21-46); MONOCYTES ABSOLUTE AUTO 0.73 K/mm3 (0.16-1.47); MONOCYTES PERCENT AUTO 6 % (4-13); Mean Corpuscular HGB 31.4 pg (26.0-34.0); Mean Corpuscular HGB Conc 33.2 g/dL (31.5-36.5); Mean Corpuscular Volume 95 fL (80-100); Mean Platelet Volume 9.8 fL (9.1-12.4); NEUTROPHILS ABSOLUTE AUTO 8.55 K/mm3 (1.96-9.15); NEUTROPHILS PERCENT AUTO 73 % (41-73); Platelet Count 230 K/mm3 (150-400); RDW Coefficient Variation 12.4 % (11.7-14.2); RDW Standard Deviation 43.2 fL (35.1-46.3); Red Blood Cell Count 4.46 M/mm3 (3.80-5.20); White Blood Cell Count 11.75 K/mm3 (4.00-11.30)
[2021-03-12 08:34] LABS: Alanine Aminotransfer (ALT/SGP 25 U/L (12-78); Albumin, Blood 3.6 g/dL (3.4-5.0); Albumin/Globulin Ratio 1.1 (0.8-1.8); Alk Phos 96 U/L (50-136); Anion Gap 6 mmol/L (6-16); Aspartate Aminotrans (AST/SGOT 17 U/L (12-37); Bilirubin, Total 0.5 mg/dL (0.1-1.0); Blood Urea Nitrogen 25 mg/dL (8-24); CO2, Blood 24 mmol/L (21-32); Calcium, Blood 8.6 mg/dL (8.5-10.1); Chloride, Blood 109 mmol/L (98-108); Creatinine, Blood 0.83 mg/dL (0.40-1.00); Globulin, Blood 3.4 g/dL (2.2-4.0); Glomerular Filtration Rate >60 (60-); Glucose, Blood 105 mg/dL (70-99); Potassium, Blood 4.3 mmol/L (3.5-5.5); Sodium, Blood 139 mmol/L (136-145)
[2021-03-12] MEDS ORDERED: SULTRIDS PO (09:44)
[2021-03-12] MEDS ORDERED: PRED20 PO (09:44)
== END 2021-03-12 09:56 | disposition home or self-care (01) ==
LOC: ER 07:50
PROVIDERS: Emergency Medicine
DX: J44.1 Chronic obstructive pulmonary disease with (acute) exacerbation (principal); L03.211 Cellulitis of face; I10 Essential (primary) hypertension; I27.20 Pulmonary hypertension, unspecified; J44.9 Chronic obstructive pulmonary disease, unspecified; G47.33 Obstructive sleep apnea (adult) (pediatric); Z88.1 Allergy status to other antibiotic agents; Z79.899 Other long term (current) drug therapy
CPT/HCPCS: 36415; 70487; 71045; 80053; 85025; 94644; 99284-25; Q9967

== ENCOUNTER 2021-03-14 09:27 | Emergency (ER) | payer OTHER ==
[~2021-03-14] VITALS: Ht 154.9 cm; Wt 101.6 kg
[~2021-03-14 09:27] MED LIST changes: +PRED20 PO; +SULTRIDS PO
[2021-03-14 11:26] LABS: BASOPHILS ABSOLUTE AUTO 0.04 K/mm3 (0.00-0.23); BASOPHILS PERCENT AUTO 0 % (0-2); EOSINOPHILS ABSOLUTE AUTO 0.27 K/mm3 (0.00-0.68); EOSINOPHILS PERCENT AUTO 2 % (0-6); Hematocrit 43.3 % (33.0-51.0); Hemoglobin 14.1 g/dL (11.5-16.0); IMMATURE GRAN ABSOLUTE AUTO 0.04 K/mm3 (0.00-0.10); IMMATURE GRAN PERCENT AUTO 0 % (0-1); LYMPHOCYTES ABSOLUTE AUTO 1.31 K/mm3 (0.84-5.20); LYMPHOCYTES PERCENT AUTO 11 % (21-46); MONOCYTES ABSOLUTE AUTO 0.43 K/mm3 (0.16-1.47); MONOCYTES PERCENT AUTO 4 % (4-13); Mean Corpuscular HGB 31.7 pg (26.0-34.0); Mean Corpuscular HGB Conc 32.6 g/dL (31.5-36.5); Mean Corpuscular Volume 97 fL (80-100); Mean Platelet Volume 9.7 fL (9.1-12.4); NEUTROPHILS ABSOLUTE AUTO 9.84 K/mm3 (1.96-9.15); NEUTROPHILS PERCENT AUTO 83 % (41-73); Platelet Count 265 K/mm3 (150-400); RDW Coefficient Variation 12.7 % (11.7-14.2); RDW Standard Deviation 45.6 fL (35.1-46.3); Red Blood Cell Count 4.45 M/mm3 (3.80-5.20); White Blood Cell Count 11.93 K/mm3 (4.00-11.30)
[2021-03-14 11:42] LABS: Alanine Aminotransfer (ALT/SGP 34 U/L (12-78); Albumin, Blood 3.7 g/dL (3.4-5.0); Albumin/Globulin Ratio 0.9 (0.8-1.8); Alk Phos 90 U/L (50-136); Anion Gap 6 mmol/L (6-16); Aspartate Aminotrans (AST/SGOT 37 U/L (12-37); Bilirubin, Total 0.4 mg/dL (0.1-1.0); Blood Urea Nitrogen 20 mg/dL (8-24); Bun/Creatinine Ratio 24.8 (12.0-20.0); CO2, Blood 24 mmol/L (21-32); Calcium, Blood 8.9 mg/dL (8.5-10.1); Chloride, Blood 109 mmol/L (98-108); Creatinine, Blood 0.81 mg/dL (0.40-1.00); Globulin, Blood 4.1 g/dL (2.2-4.0); Glomerular Filtration Rate >60 (60-); Glucose, Blood 94 mg/dL (70-99); Sodium, Blood 139 mmol/L (136-145); Total Protein, Blood 7.8 g/dL (6.4-8.2)
[2021-03-14] MEDS ORDERED: Cleocin HCl300 MG PO (11:59)
== END 2021-03-14 12:07 | disposition home or self-care (01) ==
LOC: ER 09:27
PROVIDERS: Emergency Medicine Emergency Medical Services
DX: L03.211 Cellulitis of face (principal); I10 Essential (primary) hypertension; J44.9 Chronic obstructive pulmonary disease, unspecified; Z88.1 Allergy status to other antibiotic agents; Z79.899 Other long term (current) drug therapy
CPT/HCPCS: 36415; 71045; 80053; 83605; 85025; 93005; 93010; 99284-25

== ENCOUNTER → 2021-05-20 | Outpatient (CLI) | payer OTHER ==
[~2021-05-20] MED LIST changes: +Cleocin HCl300 MG PO
== END ==
LOC: LAB 17:22 → LAB SHORT 17:22
DX: N30.00 Acute cystitis without hematuria (principal)
CPT/HCPCS: 87077; 87086; 87186

== ENCOUNTER 2021-05-27 11:48 | Emergency (ER) | payer OTHER ==
[~2021-05-27] VITALS: Ht 154.9 cm; Wt 109.3 kg
[2021-05-27 12:39] LABS: BASOPHILS ABSOLUTE AUTO 0.02 K/mm3 (0.00-0.23); BASOPHILS PERCENT AUTO 0 % (0-2); EOSINOPHILS ABSOLUTE AUTO 0.01 K/mm3 (0.00-0.68); EOSINOPHILS PERCENT AUTO 0 % (0-6); Hematocrit 37.2 % (33.0-51.0); Hemoglobin 12.2 g/dL (11.5-16.0); IMMATURE GRAN ABSOLUTE AUTO 0.06 K/mm3 (0.00-0.10); IMMATURE GRAN PERCENT AUTO 0 % (0-1); LYMPHOCYTES ABSOLUTE AUTO 0.47 K/mm3 (0.84-5.20); LYMPHOCYTES PERCENT AUTO 3 % (21-46); MONOCYTES ABSOLUTE AUTO 0.28 K/mm3 (0.16-1.47); MONOCYTES PERCENT AUTO 2 % (4-13); Mean Corpuscular HGB 30.5 pg (26.0-34.0); Mean Corpuscular HGB Conc 32.8 g/dL (31.5-36.5); Mean Corpuscular Volume 93 fL (80-100); Mean Platelet Volume 9.2 fL (9.1-12.4); NEUTROPHILS ABSOLUTE AUTO 14.36 K/mm3 (1.96-9.15); NEUTROPHILS PERCENT AUTO 95 % (41-73); Platelet Count 273 K/mm3 (150-400); RDW Coefficient Variation 13.2 % (11.7-14.2); RDW Standard Deviation 45.2 fL (35.1-46.3)
[2021-05-27 12:57] LABS: Alanine Aminotransfer (ALT/SGP 28 U/L (12-78); Albumin, Blood 3.5 g/dL (3.4-5.0); Albumin/Globulin Ratio 0.9 (0.8-1.8); Alk Phos 103 U/L (50-136); Anion Gap 4 mmol/L (6-16); Aspartate Aminotrans (AST/SGOT 10 U/L (12-37); Bilirubin, Total 0.3 mg/dL (0.1-1.0); Blood Urea Nitrogen 21 mg/dL (8-24); Bun/Creatinine Ratio 26.8 (12.0-20.0); CO2, Blood 26 mmol/L (21-32); Calcium, Blood 9.3 mg/dL (8.5-10.1); Chloride, Blood 109 mmol/L (98-108); Creatinine, Blood 0.78 mg/dL (0.40-1.00); Globulin, Blood 3.7 g/dL (2.2-4.0); Glomerular Filtration Rate >60 (60-); Glucose, Blood 130 mg/dL (70-99); Potassium, Blood 4.8 mmol/L (3.5-5.5); Sodium, Blood 139 mmol/L (136-145); Total Protein, Blood 7.2 g/dL (6.4-8.2)
[2021-05-27 15:32] LABS: Source, Urine Clean Catch
[2021-05-27] MEDS ORDERED: LINE600 PO (15:35)
[2021-05-27 15:36] LABS: Appearance, Urine Clear (Clear); Bilirubin, Urine Neg (Neg); Blood, Urine Neg (Neg); Color, Urine Yellow (P-Yellow); Glucose Qualitative, Urine Neg (Neg); Ketones, Urine Neg (Neg); Leukocyte Esterase, Urine 1+ (Neg); Nitrite, Urine Neg (Neg); Protein, Urine Neg (Neg); Urobilinogen, Urine NORM (Normal)
[2021-05-27 15:45] LABS: Red Blood Cells, Urine 0-2 /hpf (0-2); Squamous Epithelial Cells Few /hpf (Few)
[2021-05-27 15:46] LABS: Bacteria Rare /hpf
== END 2021-05-27 16:16 | disposition home or self-care (01) ==
LOC: ER 11:48
PROVIDERS: Physician Assistant
DX: K04.7 Periapical abscess without sinus (principal); Z88.1 Allergy status to other antibiotic agents; Z79.899 Other long term (current) drug therapy; Z79.52 Long term (current) use of systemic steroids; I11.0 Hypertensive heart disease with heart failure; I50.9 Heart failure, unspecified; J44.9 Chronic obstructive pulmonary disease, unspecified; G47.33 Obstructive sleep apnea (adult) (pediatric)
CPT/HCPCS: 36415; 70487; 80053; 81001; 83690; 85025; 85651; 87077; 87086; 87186; 99284-25; J7030; Q9967

== ENCOUNTER 2021-10-31 10:26 | Emergency (ER) | payer MEDICARE, OTHER ==
[~2021-10-31] VITALS: Ht 154.9 cm; Wt 117.9 kg
[~2021-10-31 10:26] MED LIST changes: +LINE600 PO
== END 2021-10-31 12:09 | disposition left against medical advice (07) ==
LOC: ER 10:26
DX: R41.0 Disorientation, unspecified (principal); Z79.899 Other long term (current) drug therapy
CPT/HCPCS: 99281

== ENCOUNTER → 2022-02-25 | Outpatient (CLI) | payer MEDICARE, OTHER | END | disposition home or self-care (01) | LOC: LAB 10:17 → LAB SHORT 10:17 | DX: B99.9 Unspecified infectious disease (principal) | CPT/HCPCS: 87070; 87075; 87205 ==

== ENCOUNTER 2022-02-26 08:53 | Emergency (ER) | payer MEDICARE, OTHER | END 2022-02-26 09:30 | disposition home or self-care (01) | LOC: ER 08:53 | DX: L23.7 Allergic contact dermatitis due to plants, except food (principal); I10 Essential (primary) hypertension; I11.0 Hypertensive heart disease with heart failure; I50.812 Chronic right heart failure; J44.9 Chronic obstructive pulmonary disease, unspecified; G47.33 Obstructive sleep apnea (adult) (pediatric); Z86.711 Personal history of pulmonary embolism; Z79.899 Other long term (current) drug therapy; Z79.52 Long term (current) use of systemic steroids ==

== ENCOUNTER 2024-02-24 17:45 | Emergency (ER) | payer OTHER ==
[~2024-02-24] VITALS: Ht 154.9 cm; Wt 96.6 kg
[2024-02-24 18:21] VITALS: BP 146/97
[2024-02-24 19:02] LABS: BASOPHILS ABSOLUTE AUTO 0.03 K/mm3 (0.00-0.23); BASOPHILS PERCENT AUTO 1 % (0-2); EOSINOPHILS ABSOLUTE AUTO 0.02 K/mm3 (0.00-0.68); EOSINOPHILS PERCENT AUTO 0 % (0-6); Hematocrit 44.4 % (33.0-51.0); Hemoglobin 15.1 g/dL (11.5-16.0); IMMATURE GRAN ABSOLUTE AUTO 0.03 K/mm3 (0.00-0.10); IMMATURE GRAN PERCENT AUTO 1 % (0-1); LYMPHOCYTES ABSOLUTE AUTO 0.93 K/mm3 (0.84-5.20); LYMPHOCYTES PERCENT AUTO 15 % (21-46); MONOCYTES PERCENT AUTO 5 % (4-13); Mean Corpuscular HGB 30.7 pg (26.0-34.0); Mean Corpuscular Volume 90 fL (80-100); Mean Platelet Volume 9.3 fL (9.1-12.4); NEUTROPHILS ABSOLUTE AUTO 5.11 K/mm3 (1.96-9.15); NEUTROPHILS PERCENT AUTO 80 % (41-73); Platelet Count 288 K/mm3 (150-400); RDW Coefficient Variation 15.4 % (11.7-14.2); Red Blood Cell Count 4.92 M/mm3 (3.80-5.20); White Blood Cell Count 6.42 K/mm3 (4.00-11.30)
[2024-02-24 19:47] LABS: Albumin/Globulin Ratio 1.5 (0.8-1.8); Bilirubin, Total 0.4 mg/dL (0.1-1.0); Bun/Creatinine Ratio 19.1 (12.0-20.0); Calcium, Blood 8.6 mg/dL (8.5-10.1); Creatinine, Blood 0.94 mg/dL (0.40-1.00); Globulin, Blood 2.7 g/dL (2.2-4.0); Magnesium, Blood 2.3 mg/dL (1.6-2.4); Potassium, Blood 3.7 mmol/L (3.5-5.5); Total Protein, Blood 6.7 g/dL (6.4-8.2)
== END 2024-02-24 19:30 | disposition left against medical advice (07) ==
LOC: ER 17:45
PROVIDERS: Physician Assistant
DX: R06.02 Shortness of breath (principal); Z53.29 Procedure and treatment not carried out because of patient's decision for other reasons
CPT/HCPCS: 71046; 80053; 83735; 85025; 99282-25

== ENCOUNTER → 2024-03-14 | Outpatient (CLI) | payer OTHER | END | disposition home or self-care (01) | LOC: LAB SHORT 18:52 → LAB 18:52 | DX: J02.9 Acute pharyngitis, unspecified (principal) | CPT/HCPCS: 87081 ==

== ENCOUNTER → 2024-05-12 | Outpatient (CLI) | payer OTHER | END | disposition home or self-care (01) | LOC: LAB 16:56 → LAB SHORT 16:56 | DX: L03.818 Cellulitis of other sites (principal) | CPT/HCPCS: 87070; 87075; 87077; 87186; 87205 ==

== ENCOUNTER → 2024-08-21 | Outpatient (CLI) | payer OTHER | LOC: LAB SHORT 16:50 | DX: J02.9 Acute pharyngitis, unspecified (principal) | CPT/HCPCS: 87081 ==

== ENCOUNTER 2024-09-10 09:37 | Emergency (ER) | payer OTHER ==
[~2024-09-10] VITALS: Ht 154.9 cm; Wt 81.7 kg
[2024-09-10 10:13] LABS: BASOPHILS ABSOLUTE AUTO 0.07 K/mm3 (0.00-0.23); BASOPHILS PERCENT AUTO 1 % (0-2); EOSINOPHILS ABSOLUTE AUTO 0.26 K/mm3 (0.00-0.68); EOSINOPHILS PERCENT AUTO 5 % (0-6); Hematocrit 49.7 % (33.0-51.0); Hemoglobin 17.1 g/dL (11.5-16.0); IMMATURE GRAN ABSOLUTE AUTO 0.07 K/mm3 (0.00-0.10); IMMATURE GRAN PERCENT AUTO 1 % (0-1); LYMPHOCYTES ABSOLUTE AUTO 1.01 K/mm3 (0.84-5.20); LYMPHOCYTES PERCENT AUTO 19 % (21-46); MONOCYTES ABSOLUTE AUTO 0.27 K/mm3 (0.16-1.47); MONOCYTES PERCENT AUTO 5 % (4-13); Mean Corpuscular HGB 32.4 pg (26.0-34.0); Mean Corpuscular HGB Conc 34.4 g/dL (31.5-36.5); Mean Corpuscular Volume 94 fL (80-100); Mean Platelet Volume 9.2 fL (9.1-12.4); NEUTROPHILS ABSOLUTE AUTO 3.66 K/mm3 (1.96-9.15); NEUTROPHILS PERCENT AUTO 69 % (41-73); Platelet Count 288 K/mm3 (150-400); RDW Standard Deviation 48.2 fL (35.1-46.3); Red Blood Cell Count 5.28 M/mm3 (3.80-5.20); White Blood Cell Count 5.34 K/mm3 (4.00-11.30)
[2024-09-10 10:47] LABS: Albumin, Blood 3.4 g/dL (3.4-5.0); Albumin/Globulin Ratio 1.1 (0.8-1.8); Bilirubin, Total 0.3 mg/dL (0.1-1.0); Bun/Creatinine Ratio 23.3 (12.0-20.0); Calcium, Blood 8.6 mg/dL (8.5-10.1); Creatinine, Blood 0.64 mg/dL (0.40-1.00); Potassium, Blood 4.6 mmol/L (3.5-5.5); Total Protein, Blood 6.4 g/dL (6.4-8.2)
[2024-09-10 11:00] VITALS: BP 130/104
== END 2024-09-10 11:48 | disposition home or self-care (01) ==
LOC: ER 09:37
PROVIDERS: Emergency Medicine
DX: R07.9 Chest pain, unspecified (principal); I11.0 Hypertensive heart disease with heart failure; I50.810 Right heart failure, unspecified; J44.9 Chronic obstructive pulmonary disease, unspecified; G47.33 Obstructive sleep apnea (adult) (pediatric); Z88.1 Allergy status to other antibiotic agents; Z79.899 Other long term (current) drug therapy
CPT/HCPCS: 71046; 80053; 83880; 84484; 85025; 93005; 93010; 99285-25

== ENCOUNTER 2024-10-02 20:13 | Emergency (ER) | payer OTHER ==
[~2024-10-02] VITALS: Ht 165.1 cm; Wt 72.6 kg
[2024-10-02 21:07] LABS: BASOPHILS ABSOLUTE AUTO 0.07 K/mm3 (0.00-0.23); BASOPHILS PERCENT AUTO 1 % (0-2); EOSINOPHILS ABSOLUTE AUTO 0.37 K/mm3 (0.00-0.68); EOSINOPHILS PERCENT AUTO 7 % (0-6); Hematocrit 45.3 % (33.0-51.0); Hemoglobin 15.3 g/dL (11.5-16.0); IMMATURE GRAN ABSOLUTE AUTO 0.07 K/mm3 (0.00-0.10); IMMATURE GRAN PERCENT AUTO 1 % (0-1); LYMPHOCYTES ABSOLUTE AUTO 1.71 K/mm3 (0.84-5.20); LYMPHOCYTES PERCENT AUTO 31 % (21-46); MONOCYTES ABSOLUTE AUTO 0.39 K/mm3 (0.16-1.47); MONOCYTES PERCENT AUTO 7 % (4-13); Mean Corpuscular HGB 31.6 pg (26.0-34.0); Mean Corpuscular HGB Conc 33.8 g/dL (31.5-36.5); Mean Corpuscular Volume 94 fL (80-100); Mean Platelet Volume 9.1 fL (9.1-12.4); NEUTROPHILS ABSOLUTE AUTO 2.83 K/mm3 (1.96-9.15); NEUTROPHILS PERCENT AUTO 52 % (41-73); Platelet Count 305 K/mm3 (150-400); RDW Standard Deviation 48.4 fL (35.1-46.3); Red Blood Cell Count 4.84 M/mm3 (3.80-5.20); White Blood Cell Count 5.44 K/mm3 (4.00-11.30)
[2024-10-02 22:26] LABS: Albumin, Blood 3.3 g/dL (3.4-5.0); Albumin/Globulin Ratio 1.3 (0.8-1.8); Bilirubin, Total 0.1 mg/dL (0.1-1.0); Bun/Creatinine Ratio 32.9 (12.0-20.0); Calcium, Blood 8.5 mg/dL (8.5-10.1); Creatinine, Blood 0.85 mg/dL (0.40-1.00); Globulin, Blood 2.6 g/dL (2.2-4.0); Total Protein, Blood 5.9 g/dL (6.4-8.2)
[2024-10-03 00:37] VITALS: BP 140/98
== END 2024-10-03 00:38 | disposition home or self-care (01) ==
LOC: ER 20:13
PROVIDERS: Student in an Organized Health Care Education/Training Program
DX: R07.9 Chest pain, unspecified (principal); I11.0 Hypertensive heart disease with heart failure; I50.9 Heart failure, unspecified; G47.33 Obstructive sleep apnea (adult) (pediatric); J44.9 Chronic obstructive pulmonary disease, unspecified; Z88.1 Allergy status to other antibiotic agents; Z79.51 Long term (current) use of inhaled steroids; Z79.52 Long term (current) use of systemic steroids; Z79.899 Other long term (current) drug therapy; Z59.89 Other problems related to housing and economic circumstances
CPT/HCPCS: 71046; 80053; 84484; 85025; 93005; 93010; 99285-25

== ENCOUNTER 2025-02-17 12:35 | Inpatient (IN) | payer OTHER ==
[~2025-02-17] VITALS: Ht 154.9 cm; Wt 90.0 kg
[2025-02-17] MEDS ORDERED: Ondansetron 4 MG SoluTab MM PRN (14:35)
[2025-02-17] MEDS ORDERED: Polyethylene Glycol 3350 17 gm PO PRN (14:35)
[2025-02-17] MEDS ORDERED: Aluminum Hydroxide 320MG/5ML 473 ML PO PRN (14:35)
[2025-02-17 14:53] VITALS: BP 108/77
[2025-02-17 15:28] VITALS: BP 108/77
[2025-02-17] MEDS ORDERED: Albuterol HFA200 ACT/6.7 GM INH INH PRN (15:35)
[2025-02-17] MEDS ORDERED: Formoterol/Mometasone MDI 5/200 mcg 13 GM INH SCH (15:45)
--- NOTE | 2025-02-17 17:49 | NUR ---
SHIFT SUMMARY PT ADMITTED FROM [facility] ED FOR PSYCHOSIS/SI. PT BROUGHT IN BY [facility]MA REBOLLAR AND BELONGINGS STORED PER UNIT PROTOCOL. PT DRESSED DOWN INTO UNIT BASED SCRUBS AND SKIN CHECK COMPLETED WITH CORONA CORONA. YEAST/RED RASH TO RIGHT SIDE OF PANNUS VISUALIZED. PT DENIES ITCHING OR DISCOMFORT. PT VERY TIRED AND DISORIENTED DURING INTAKE INTERVIEW. PT DOES NOT KNOW WHAT BROUGHT HER INTO THE HOSPITAL OR WHAT MEDICATIONS THAT SHE IS TAKING. PT UNABLE TO ANSWER MOST INTERVIEW QUESTIONS. IT IS UNCLEAR IF THE PATIENT IS CURRENTLY SUICIDAL. THIS RN REACHED OUT TO [facility] TO GET AN UPDATED MEDICATION LIST AND PHARMACY CLOSED. WILL NEED TO OBTAIN MED LIST FROM PHARMACY IN THE MORNING TOMORROW. PT CURRENTLY IN ROOM, SLEEPING.
[2025-02-17 20:18] VITALS: BP 100/64
--- NOTE | 2025-02-17 20:29 | NUR ---
MEDICATION ADMINISTRATION: PATIENT REQUESTED AND WAS GIVEN TRAZODONE WITH EVENING MEDICATIONS. SHE STATED, "I'M REALLY SLEEPY BUT I'M HAVING A HARD TIME ACTUALLY FALLING ASLEEP."
--- NOTE | 2025-02-18 04:37 | NUR ---
SHIFT SUMMARY: PATIENT WAS IN HER BED RESTING AT THE BEGINNING OF THE SHIFT. SHE AWAKENED TO HER NAME SAID SOFTLY, AND WAS ABLE TO ANSWER SENIOR SOLUTIONS CONSULTANT QUESTIONS, ALTHOUGH HER ANSWERS WERE SHORT. SHE DENIED SUICIDAL IDEATION, THOUGHTS OF SELF HARMING AND A/V/T HALLUCINATIONS. SHE COMPLAINED OF "I'M SLEEPY BUT I CAN'T FALL ASLEEP" AND ASKED IF THERE WAS "SOMETHING I CAN TAKE". SHE WAS GIVEN TRAZODONE WITH HER EVENING MEDICATIONS, WHICH WAS EFFECTIVE. SHE DID NOT GET UP FOR SNACK AND WRAP UP GROUP, BUT STATED, "I'M NOT HUNGRY, THANK YOU". SHE REMAINED IN BED, WHERE SHE WAS NOTED TO BE RESTING QUIETLY WITH EYES CLOSED AND RESPIRATIONS CONFIRMED FOR THE REMAINDER OF THE SHIFT. CONTINUING TO MONITOR FOR SAFETY WITH Q15 MINUTE CHECKS.
[2025-02-18 07:49] LABS: Alanine Aminotransfer (ALT/SGP 22 U/L (12-78); Albumin, Blood 3.4 g/dL (3.4-5.0); Albumin/Globulin Ratio 1.0 (0.8-1.8); Anion Gap 10 mmol/L (3-11); Aspartate Aminotrans (AST/SGOT 19 U/L (12-37); Bilirubin, Total 0.4 mg/dL (0.1-1.0); Blood Urea Nitrogen 23 mg/dL (8-24); CHOL/HDL RATIO 3.3; CO2, Blood 22 mmol/L (21-32); Calcium, Blood 8.5 mg/dL (8.5-10.1); Chloride, Blood 114 mmol/L (98-108); Cholesterol 187 mg/dL (50-200); Creatinine, Blood 1.05 mg/dL (0.40-1.00); Globulin, Blood 3.4 g/dL (2.2-4.0); Glucose, Blood 97 mg/dL (70-99); HDL Cholesterol 56 mg/dL (>39); LDL/HDL RATIO 1.9; Low Density Lipoprotein Chol 107 mg/dL (0-110); Magnesium, Blood 2.0 mg/dL (1.6-2.4); Potassium, Blood 4.2 mmol/L (3.5-5.5); Sodium, Blood 142 mmol/L (136-145); Total Protein, Blood 6.8 g/dL (6.4-8.2); Triglycerides 118 mg/dL (30-160); Very Low Density Lipoprot Chol 23 mg/dL (6-32)
--- NOTE | 2025-02-18 08:20 | NUR ---
UPDATE DENIES HEAVY ALCOHOL USAGE. EXPLAINED WHY WE ASK (ASSESS FOR ALCOHOL WITHDRAWAL AND HOW DANGEROUS THEY ARE). STATES LAST DRINK SHE HAD WAS "4 DAYS AGO" AND STATED, "HAD 1 BEER. 1 BEER CAN LAST ME 3 DAYS".
[2025-02-18] MEDS ORDERED: TIOT18 INH (09:06)
[2025-02-18] MEDS ORDERED: FLUTICASONE-SA1 EAC1 INH (09:07)
[2025-02-18] MEDS ORDERED: Naltrexone HCl50 MG PO (09:08)
[2025-02-18] MEDS ORDERED: FURO40 PO (09:08)
[2025-02-18] MEDS ORDERED: FOLI1 PO (09:08)
[2025-02-18] MEDS ORDERED: TADA10TA PO (09:09)
[2025-02-18] MEDS ORDERED: PANT40 PO (09:09)
[2025-02-18] MEDS ORDERED: PRAZ2 PO (09:09)
[2025-02-18 09:11] VITALS: BP 125/81
[2025-02-18] MEDS ORDERED: BUDESONIDE0.5 MG/2 M INH (09:11)
[2025-02-18] MEDS ORDERED: VENL37.5ER PO (09:11)
[2025-02-18] MEDS ORDERED: TRAZ150T57 PO (09:11)
[2025-02-18] MEDS ORDERED: MELA3 PO (09:12)
[2025-02-18] MEDS ORDERED: LISI5 PO (09:13)
[2025-02-18] MEDS ORDERED: BACL10 PO (09:14)
[2025-02-18] MEDS ORDERED: SENNA LAXATIVE8.6 MG PO (09:14)
[2025-02-18] MEDS ORDERED: POTCHL20ER PO (09:14)
[2025-02-18] MEDS ORDERED: BUSP5 PO (09:16)
[2025-02-18] MEDS ORDERED: BUTALB-ACETAMI1 EAC7 PO (09:16)
[2025-02-18] MEDS ORDERED: VITAMIN D350 MC3 PO (09:17)
[2025-02-18] MEDS ORDERED: PALI6TA PO (09:18)
[2025-02-18] MEDS ORDERED: METR59TL TOP (09:18)
[2025-02-18] MEDS ORDERED: TOPI100 PO (09:19)
[2025-02-18] MEDS ORDERED: LAMO100 PO (09:20)
--- NOTE | 2025-02-18 10:18 | NUR ---
UPDATE DR SUMMERS CALLED FOR PROVIDER CONSULT. MEDS HELD PER ORDER
[2025-02-18] MEDS ORDERED: Tiotropium Bromide 2.5 MCG/ACT MIST INHAL (10 ACT/4 GM) INH SCH (17:45)
--- NOTE | 2025-02-18 17:48 | NUR ---
SHIFT SUMMARY PT DENIES SI, HI, AVTH. NO EDEMA NOTED, DENIES SOB, CP, AND NAUSEA AT THIS TIME. PROVIDER CONSULTED FOR MEDICATION MANAGEMENT. MEDICATIONS ORDERED. DR TINEO NOTIFIED THAT WE DON'T ADMINISTER NEBULIZER AT [facility] AND ORDER CHANGED, PULMICORT DC'D PER DR TINEO. PHARMACY CONSULTED CONFIRMING ORDER FOR IPRAROPIUM AND SPIRIVA ORDER CHANGE. NO ACUTE EVENTS.
[2025-02-18] MEDS ORDERED: Ipratropium Bromide INH 0.02% 0.5 mg/2.5ML Vial INH SCH (18:00)
[2025-02-18 20:44] VITALS: BP 137/83
[2025-02-18] MEDS ORDERED: Budesonide 0.5 MG/2 ML RESP INH SCH (21:00)
--- NOTE | 2025-02-19 04:19 | NUR ---
SHIFT SUMMARY: PATIENT WAS IN BED RESTING QUIETLY BUT AWAKE AT THE BEGINNING OF THE SHIFT. SHE WAS ABLE TO ANSWER TRUER PINION AND WHEEL QUESTIONS IN A LOGICAL AND LINEAR MANNER, ALTHOUGH SHE RARELY OPENED HER EYES. SHE DENIED SUICIDAL IDEATION, THOUGHTS OF SELF HARMING AND A/V/T HALLUCINATIONS. SHE STATED THAT SHE IS "NOT HUNGRY, BUT I'M SLEEPY" AND THAT SHE JUST WANTED TO SLEEP. SHE DECLINED OFFER OF SNACK AT 2030. SHE WAS COMPLIANT WITH EVENING MEDICATIONS, AND DID NOT REQUEST ANY PRN MEDICATIONS THIS SHIFT. SHE REMAINED IN BED RESTING WITH EYES CLOSED AND RESPIRATIONS CONFIRMED THROUGHOUT THE SHIFT. CONTINUING TO MONITOR FOR SAFETY WITH Q15 MINUTE CHECKS.
[2025-02-19 08:27] LABS: Albumin, Blood 3.5 g/dL (3.4-5.0); Anion Gap 6 mmol/L (3-11); Blood Urea Nitrogen 22 mg/dL (8-24); CO2, Blood 22 mmol/L (21-32); Calcium, Blood 9.1 mg/dL (8.5-10.1); Chloride, Blood 112 mmol/L (98-108); Creatinine, Blood 0.90 mg/dL (0.40-1.00); Glucose, Blood 109 mg/dL (70-99); Phosphorus, Blood 2.9 mg/dL (2.5-4.9); Potassium, Blood 4.3 mmol/L (3.5-5.5); Sodium, Blood 136 mmol/L (136-145)
[2025-02-19 09:15] VITALS: BP 134/114
--- NOTE | 2025-02-19 10:35 | NUR ---
SHIFT SUMMARY: PT WAS RESTING IN BED AT THE BEGINNING OF SHIFT. SHE REPORTED THAT SHE HAS AUDITORY HALLUCINATIONS, "THEY ARE TELLING ME THAT MY CHILDREN, FRIENDS AND FAMILY ARE ALL ." SHE DENIED SI, HI AND ENCDORSED BACK PAIN 4/10w. SHE REPORTED HER MOOD , "NUMB." SHE BECAME VERY TEARFUL AFTER BREAKFAST AND WAS GIVEN OLANXAPINE 10MG FOR A MASS SCORE OF 9. PT'S BLOOD PRESSURE WAS 134/114, REORTED TO CHARGE NURSE. PRESSURE RETAKEN 130/91. PT CONTINUES TO BE EMOTIONAL. SHE HAS BEEN PRESENT IN GROUPS AND ACTIVE IN THE PT MILIEU.
[2025-02-19 10:39] VITALS: BP 131/91
--- NOTE | 2025-02-19 18:23 | NUR ---
PT HAS BEEN RESTING IN BED MOST OF THE AFTERNOON.
[2025-02-19 19:32] VITALS: BP 94/60
--- NOTE | 2025-02-20 04:12 | NUR ---
SHIFT SUMMARY: PATIENT WAS IN HER BED WHEN RN WENT TO DO ASSESSMENT. PATIENT WAS ABLE TO ANSWER QUESTIONS IN A LOGICAL AND LINEAR MANNER, ALTHOUGH HER ANSWERS WERE SHORT AND BLUNT. SHE DENIED SUICIDAL IDEATION AND STATED, "I'M SAD BUT I DON'T FEEL SUICIDAL". SHE DENIED THOUGHTS OF SELF HARMING AND A/V/T HALLUCINATIONS. HER SUICIDAL Q4 CHECKS WERE DISCONTINUED, WELL SHIFT SUICIDE ASSESSMENT, ALTHOUGH IT IS STILL IN THE NURSING ASSESSMENT, SO IS BEING DONE. THE Q4 CHECKS WERE CONTINUED THROUGH TO 0. PATIENT DID NOT WANT A SNACK AND DID WAKE UP FOR MEDICATION ADMINISTRATION. SHE WAS EDUCATED ON HER MEDICATIONS, AND STATED "THANK YOU". SHE HAD NO REQUESTS FOR PRNS THIS SHIFT. SHE REMAINED IN BED RESTING WITH EYES CLOSED AND RESPIRATIONS CONFIRMED FOR THE REST OF THE SHIFT. CONTINUING TO MONITOR FOR SAFETY WITH Q15 MINUTE CHECKS.
[2025-02-20 08:16] LABS: Alanine Aminotransfer (ALT/SGP 23.0 U/L (12-78); Albumin, Blood 3.5 g/dL (3.4-5.0); Albumin/Globulin Ratio 1.1 (0.8-1.8); Anion Gap 8.0 mmol/L (3-11); Aspartate Aminotrans (AST/SGOT 17.0 U/L (12-37); Bilirubin, Total 0.2 mg/dL (0.1-1.0); Blood Urea Nitrogen 22.0 mg/dL (8-24); CO2, Blood 24.0 mmol/L (21-32); Calcium, Blood 8.6 mg/dL (8.5-10.1); Chloride, Blood 113.0 mmol/L (98-108); Creatinine, Blood 0.84 mg/dL (0.40-1.00); Globulin, Blood 3.2 g/dL (2.2-4.0); Glucose, Blood 100.0 mg/dL (70-99); Potassium, Blood 3.9 mmol/L (3.5-5.5); Sodium, Blood 141.0 mmol/L (136-145); Total Protein, Blood 6.7 g/dL (6.4-8.2)
[2025-02-20 08:20] VITALS: BP 131/118
--- NOTE | 2025-02-20 09:07 | NUR ---
SHIFT SUMMARY: PT DENIED SI AND HI, SHE ENDORSED AUDITORY HALLUCINATIONS, "THE VOICES ARE TELLING ME THAT MY BOY IS HANGING IN THERE AND BUTCH AND CATRINA ARE BEING SUPPORTIVE." PT REPORTED THAT SHE HAS CHRONIC BACK PAIN AND RAIED IT 4/10w. SHE DESCRIBED HER MOOD , "I'M SAD...HEARTBROKEN." PT WAS WALKING IN THE [place] WITH HER ROOMMATE UNTIL BREAKFAST. SHE HAS DEVELOPED A FRIENDSHIP WITH HER ROOMMATE.
[2025-02-20 09:28] VITALS: BP 103/75
--- NOTE | 2025-02-20 09:41 | NUR ---
PT CAME TO THE NURSES STATION REPORTING, "I DON'T FEEL RIGHT...DIZZY AND NOT FEELING WELL." HER BLOOD PRESSURE BEFORE MEDS WAS 131/118 AT PRESENT IT WAS 103/75. PT WAS ASSISTED TO HER BED. THIS RN CHECKED ON HER AFTER A FEW MINUTES AND SHE REPORTED, "I FEEL BETTER...NO DIZZINESS." WILL RECHECK HER BLOOD PRESSURE IN A FEW MINUTES. CHARGE NURSE AND PROVIDER NOTIFIED. HOSPITALIST CONSULT TO BE PLACED.
[2025-02-20 10:06] VITALS: BP 101/78
--- NOTE | 2025-02-20 12:06 | NUR ---
PT REPORTED "I'M FEELING JUST FINE." SHE IS IN GROUP AT THIS TIME.
[2025-02-20 20:13] VITALS: BP 83/53
[2025-02-20 20:30] VITALS: BP 110/80
--- NOTE | 2025-02-20 22:09 | NUR ---
HYPOTENSION AT 2014 BP 83/53 HR 67 UNABLE TO GET ACCURATE OXYGEN SAT. AT 2029 RECHECK MANUAL BP 110/80 HR 76 BIOX 92% ON RA. PATIENT VERBALIZED FEELING TIRED. ALSO VERBALIZED THAT SHE WEARS OXYGEN 2L/NC AT HOME WHEN NEEDED. ALSO WEARS CPAP WHEN SLEEPING, BUT HAS NOT BEEN WEARING THE CPAP BECAUSE OF THE FIT OF THE MASK. DOCTOR JOHNNIE NOTIFIED. PLAN TO MONITOR T/O NIGHT AND EXTRA PILLOWS PROVIDED TO ELEVATE HEAD WHILE SLEEPING. AT 2129 PATIENT ABLE TO SIT UP ON SIDE OF BED WITHOUT DIFFICULTY, WITH NO C/O DIZZINESS OR SOB. TYRA PO MEDICATIONS WITHOUT DIFFICULTY.
--- NOTE | 2025-02-21 04:53 | NUR ---
SHIFT SUMMARY PATIENT SLEEPING AWAKENS TO VERBAL STIMULI. VERBALIZED "I'M JUST TIRED" SEE CHARTING REGARDING HYPOTENSION. EXTRA PILLOW GIVEN TO HELP ELEVATE HEAD WHILE SLEEPING DUE TO SLEEP APNEA. PATIENT DENIES SI, HI, OR AVH. DURING MED PASS PATIENT ABLE TO SIT ON SIDE OF BED, NO C/O DIZZINESS OR SOB. PATIENT APPEARS TO BE SLEEPING WELL T/O NIGHT RESP EVEN AND UNLABORED. CONTINUE TO MONITOR Q15MIN
[2025-02-21 09:08] VITALS: BP 137/96
--- NOTE | 2025-02-21 17:04 | NUR ---
SHIFT SUMMARY PT HAS HAD A GOOD SHIFT TODAY, UP AND INVOLVED IN THE MILIEU ALL DAY WITH ALL MEALS/SNACKS AND DAY ROOM. SHE IS COMPLIANT WITH ALL MEDICATION ADMINISTRATION BUT REFUSED THE POTASSIUM HER FUROSEMIDE WAS D/C BY HOSPITALIST DUE TO HER LOW BLOOD PRESSURES YESTERDAY. HER PRESSURE TODAY WAS 136/97. HOSPITALIST HAS NOT BEEN IN TO SEE HER YET TODAY. PT HAS TWO FEMALE FRIENDS COME TO VISIT TODAY AND PT SEEMED TO ENJOY THAT VERY MUCH. PT HAS DENIED ALL SI/HI/AVH THOUGHOUT SHIFT AND SHE HAS CONTINUED TO RECEIVE Q15 MIN SAFETY CHECKS.
[2025-02-21 19:42] VITALS: BP 126/89
--- NOTE | 2025-02-22 04:03 | NUR ---
PT WAS UP AND ACTIVE IN THE MILIEU UNTIL ABOUT 2100, PT REQUESTED TRAZADONE PRN AND HAS BEEN IN BED, APPEARS TO BE SLEEPING. UP BRIEFLY TO LOOK AT THE TIME THEN WENT BACK TO BED. SHE WAS SLIGHTLY TEARFUL IN THE GROUP ROOM BEFORE GOING TO BED AND STATED SHE MISSED HER FAMILY.
[2025-02-22 09:11] VITALS: BP 129/84
--- NOTE | 2025-02-22 17:47 | NUR ---
SHIFT SUMMARY PT HAS BEEN ENGAGED IN THE MILIEU ALL SHIFT, HAS DENIED SI/HI/AVH. SHE HAD AN EPISODE WHERE SHE STATED SHE SUDDENLY DIDN'T FEEL WELL AND LIGHTHEADED. HE VITALS WERE WNL, THIS RN WALKED WITH HER DOWN TO HER ROOM. SHE LAID DOWN FOR AWHILE AND CHECKED BACK ON HER. SHE STATED SHE FELT MUCH BETTER AND THEN SHE ENGAGED IN THE DAY ROOM WITH HER PEERS. PT HAS RECEIVED Q15 MIN VISUAL SAFETY CHECKS ALL SHIFT.
[2025-02-22 20:22] VITALS: BP 112/74
--- NOTE | 2025-02-23 04:15 | NUR ---
SHIFT SUMMARY PT LAYING IN BED, AWAKE AT START OF SHIFT. SHE DENIES ANY SI, HI OR AVTH. SHE IS PLEASANT AND COOPERATIVE WITH CARE. SHE REPORTS HER MOOD "HOPEFUL". SHE DECLINED EVENING SNACK, STATING SHE WASN'T HUNGRY. SHE WAS COMPLIANT WITH MEDS AND REQUESTED AND RECEIVED PRN TRAZODONE TO ASSIST WITH SLEEPING. SHE HAS REMAINED IN BED THROUGHOUT THE NIGHT. Q15 MINUTE CHECKS TO CONTINUE PER PT SAFETY.
[2025-02-23 07:54] VITALS: BP 142/107
[2025-02-23 08:27] LABS: Anion Gap 7.0 mmol/L (3-11); Blood Urea Nitrogen 22.0 mg/dL (8-24); CO2, Blood 24.0 mmol/L (21-32); Calcium, Blood 8.8 mg/dL (8.5-10.1); Chloride, Blood 116.0 mmol/L (98-108); Creatinine, Blood 0.99 mg/dL (0.40-1.00); Glucose, Blood 92.0 mg/dL (70-99); Potassium, Blood 4.5 mmol/L (3.5-5.5); Sodium, Blood 142.0 mmol/L (136-145)
--- NOTE | 2025-02-23 12:56 | NUR ---
DISCHARGE APPT PT ORIGINAL APPT TODAY AT 2PM CHANGE IT TO FEB 26 AT 0915, WITH BRAYAN HERNANDEZ
--- NOTE | 2025-02-23 17:16 | NUR ---
SHIFT SUMMARY PT HAS HAD A GREAT SHIFT AND THE PLAN IS TO D/C HOME TOMORROW. HER APPT WITH BRAYAN Thompson AT [facility] IS ON 02/26/25 @ 0988. SHE HAS BEEN COMPLAINT WITH HER MEDICATIONS, INVOLVED IN THE MILIEU ALL SHIFT, ATTENDING GROUPS PUT ON BY ZEKE JETER, ALL MEALS AND SNACK. SHE HAS RECEIVED Q15 MIN SAFETY CHECKS ALL SHIFT
[2025-02-23 20:45] VITALS: BP 123/88
--- NOTE | 2025-02-23 23:58 | NUR ---
MID SHIFT SUMMARY PT TAKING A SHOWER AT THE START OF SHIFT. REPORTS HER MOOD "GOOD". SHE STATES SHE FEELS READY FOR DISCHARGE AND IS EXCITED TO SEE HER DOG. PT DENIES ANY SI, HI, OR AVTH. SHE IS CALM AND COOPERATIVE WITH CARE. SHE HAD EVEING SNACK, WAS COMPLIANT WITH MEDS, SHE REQEUSTED AND RECEIVED PRN TRAZODONE TO ASSIST WITH SLEEPING. PT WENT TO BED AFTER SNACK. Q15 MINUTE CHECKS TO CONTINUE PER PT SAFETY.
--- NOTE | 2025-02-24 04:07 | NUR ---
END OF SHIFT UPDATE NO ACUTE CHANGES. PT HAS REMAINED IN BED THROUGHOUT THE NIGHT. Q15 MINUTE CHECKS TO CONTINUE.
[2025-02-24 08:08] LABS: Anion Gap 3.0 mmol/L (3-11); Blood Urea Nitrogen 22.0 mg/dL (8-24); CO2, Blood 23.0 mmol/L (21-32); Calcium, Blood 9.2 mg/dL (8.5-10.1); Chloride, Blood 113.0 mmol/L (98-108); Creatinine, Blood 0.76 mg/dL (0.40-1.00); Glucose, Blood 104.0 mg/dL (70-99); Potassium, Blood 4.2 mmol/L (3.5-5.5); Sodium, Blood 135.0 mmol/L (136-145)
[2025-02-24 09:00] VITALS: BP 128/86
[2025-02-24] MEDS ORDERED: VENL75ER PO (10:54)
[2025-02-24] MEDS ORDERED: Prinivil10 MG PO (10:56)
[2025-02-24] MEDS ORDERED: FURO20 PO (10:56)
[2025-02-24] MEDS ORDERED: PALI6TA (10:58)
--- NOTE | 2025-02-24 12:13 | NUR ---
Discharge- Des was picked up by Cassidy Barragan via [employer] at noon today. All belongings were returned. The patient understands her discharge orders and is aware of follow up appt. Medications were faxed to [facility] and the cab will stop there before taking the patient to her residence. Patient denies suicidal/homicidal thoughts today and is looking forward to discharging to home.
== END 2025-02-24 12:00 | disposition home or self-care (01) | DRG 885 ==
LOC: BHU 12:35
PROVIDERS: Internal Medicine; ADMIT Student in an Organized Health Care Education/Training Program
DX: F34.9 Persistent mood [affective] disorder, unspecified (principal); N17.9 Acute kidney failure, unspecified; J44.9 Chronic obstructive pulmonary disease, unspecified; G47.33 Obstructive sleep apnea (adult) (pediatric); I11.0 Hypertensive heart disease with heart failure; I50.812 Chronic right heart failure; G89.4 Chronic pain syndrome; M25.561 Pain in right knee; M25.562 Pain in left knee; E86.0 Dehydration; F10.20 Alcohol dependence, uncomplicated; F15.10 Other stimulant abuse, uncomplicated; F32.A Depression, unspecified; I27.21 Secondary pulmonary arterial hypertension; R82.90 Unspecified abnormal findings in urine; Z91.51 Personal history of suicidal behavior; Z86.19 Personal history of other infectious and parasitic diseases; Z88.1 Allergy status to other antibiotic agents; Z79.51 Long term (current) use of inhaled steroids; Z79.899 Other long term (current) drug therapy; Z56.0 Unemployment, unspecified; Z88.5 Allergy status to narcotic agent
CPT/HCPCS: 36415; 80048; 80053; 80061; 80069; 83036; 83735; A9270; J2470